=== PATIENT | male | born 1965 | race African-American/Black ===

== ENCOUNTER 2018-05-21 11:55 | Inpatient (IN) | payer OTHER ==
[2018-05-21 12:11] VITALS: BMI 28.5
--- NOTE | 2018-05-21 13:01 | HP ---
CIWA Score - CIWA Score Nausea/Vomitin-Mild Nausea/No Vomiting Muscle Tremors: 3 Anxiety: 4-Mod. Anxious/Guarded Agitation: 4-Moderately Restless Paroxysmal Sweats: 1-Minimal Palms Moist Orientation: 0-Oriented Tacttile Disturbances: 0-None Auditory Disturbances: 0-None Visual Disturbances: 0-None Headache: 1-Very Mild CIWA-Ar Total Score: 14 Admission ROS BHS - HPI Chief Complaint: alcohol withdrawal sx Allergies/Adverse Reactions: Allergies Allergy/AdvReac Type Severity Reaction Status Date / Time No Known Allergies Allergy Verified 05/21/18 12:52 History of Present Illness: 53 years old male with long history of alcohol nicotine dependence has hypertension and diabetes ii also anxiety and depression is admitted to detox Exam Limitations: No Limitations - Ebola screening Have you traveled outside of the country in the last 21 days: No Have you had contact with anyone from an Ebola affected area: No Have you been sick,other than usual withdrawal symptoms: No Do you have a fever: No - Review of Systems Constitutional: Changes in sleep, Weight Stable EENT: reports: No Symptoms Reported Respiratory: reports: No Symptoms reported Cardiac: reports: No Symptoms Reported GI: reports: Nausea, Poor Fluid Intake, Indigestion, Abdominal cramping : reports: No Symptoms Reported Musculoskeletal: reports: No Symptoms Reported Integumentary: reports: No Symptoms Reported Neuro: reports: Tremors Endocrine: reports: Increased Urine Hematology: reports: No Symptoms Reported Psychiatric: reports: Judgement Intact, Orientated x3, Anxious, Depressed Other Systems: Reviewed and Negative Patient History - Patient Medical History Hx Anemia: No Hx Asthma: No Hx Chronic Obstructive Pulmonary Disease (COPD): No Hx Cancer: No Hx Cardiac Disorders: No Hx Congestive Heart Failure: No Hx Hypertension: Yes Hx Hypercholesterolemia: No Hx Pacemaker: No HX Cerebrovascular Accident: No Hx Seizures: No Hx Dementia: No Hx Diabetes: Yes Hx Gastrointestinal Disorders: No Hx Liver Disease: No Hx Genitourinary Disorders: No Hx Sexually Transmitted Disorders: No Hx Renal Disease (ESRD): No Hx Thyroid Disease: No Hx Human Immunodeficiency Virus (HIV): No Hx Hepatitis C: No Hx Depression: Yes Hx Suicide Attempt: Yes (cut left wrist age 14) Hx Bipolar Disorder: No Hx Schizophrenia: No - Patient Surgical History Past Surgical History: Yes Hx Neurologic Surgery: No Hx Cataract Extraction: No Hx Cardiac Surgery: No Hx Lung Surgery: No Hx Breast Surgery: No Hx Breast Biopsy: No Hx Abdominal Surgery: Yes (Sx for peptic ulcer 17 yrs ago) Hx Appendectomy: No Hx Cholecystectomy: No Hx Genitourinary Surgery: No Hx Orthopedic Surgery: No Anesthesia Reaction: No - PPD History Previous Implant?: Yes Documented Results: Negative w/proof Implanted On Prior R Admission?: Yes Date: 04/12/14 PPD to be Administered?: Yes - Smoking Cessation Smoking history: Current every day smoker Have you smoked in the past 12 months: Yes Aproximately how many cigarettes per day: 10 Hx Chewing Tobacco Use: No Initiated information on smoking cessation: Yes 'Breaking Loose' booklet given: 05/21/18 - Substance & Tx. History Hx Alcohol Use: Yes Hx Substance Use: Yes Substance Use Type: Alcohol, Cocaine, Marijuana Hx Substance Use Treatment: Yes (2013 [facility]) Family Disease History - Family Disease History Family Disease History: Other: Father (ALCOHOL/), Brother (ALCOHOL), Sister (ALCOHOL) Admission Physical Exam BHS - Vital Signs Vital Signs: Vital Signs - 24 hr 05/21/18 12:09 Temperature 98.8 F Pulse Rate 91 H Respiratory 18 Rate Blood Pressure 152/97 - Physical General Appearance: Yes: Nourished, Appropriately Dressed, Mild Distress, Tremorous, Irritable, Sweating, Anxious HEENTM: Yes: Hearing grossly Normal, Normocephalic, Normal Voice Respiratory: Yes: Chest Non-Tender, Lungs Clear, Normal Breath Sounds, No Respiratory Distress, No Accessory Muscle Use Neck: Yes: Supple, Trachea in good position Breast: Yes: Breasts Symetrical, No Discharge Cardiology: Yes: Regular Rhythm, S1, S2, Tachycardia Abdominal: Yes: Non Tender, Flat, Increased Bowel Sounds Genitourinary: Yes: Within Normal Limits Back: Yes: Normal Inspection Musculoskeletal: Yes: full range of Motion, Gait Steady Extremities: Yes: Normal Inspection, Normal Range of Motion, Non-Tender, Tremors Neurological: Yes: Fully Oriented, Alert, Motor Strength 5/5, Normal Response, Depressed Affect Integumentary: Yes: Warm Lymphatic: Yes: Within Normal Limits - Diagnostic (1) Alcohol dependence with uncomplicated withdrawal Current Visit: Yes Status: Acute (2) Cannabis dependence, uncomplicated Current Visit: Yes Status: Chronic (3) Hypertension Current Visit: Yes Status: Chronic Qualifiers: Hypertension type: essential hypertension Qualified Code(s): I10 - Essential (primary) hypertension (4) Diabetes mellitus type II, non insulin dependent Current Visit: Yes Status: Chronic Comment: never received insulin (5) Nicotine dependence Current Visit: Yes Status: Acute Qualifiers: Nicotine product type: cigarettes Substance use status: in withdrawal Qualified Code(s): F17.213 - Nicotine dependence, cigarettes, with withdrawal Cleared for Admission S - Detox or Rehab [facility] Level of Care: Medically Managed Detox Regimen/Protocol: Librium S Breath Alcohol Content Breath Alcohol Content: 0 Urine Drug Screen - Control Is Test Valid: Yes - Results Drug Screen Negative: No Urine Drug Screen Results: THC-Marijuana, SUSHIL-Cocaine
[2018-05-21] MEDS ORDERED: NICOTINE POLACRILEX 2 MG GUM BUC PRN (13:11)
[2018-05-21] MEDS ORDERED: MENTHOL/PHENOL 1 EACH UD MM PRN (13:11)
[2018-05-21] MEDS ORDERED: MAG HYDROX/AL HYDROX/SIMETH 30 ML UNIT-DOSE CUP PO PRN (13:11)
[2018-05-21] MEDS ORDERED: chlordiazePOXIDE HCL 25 MG CAPSULE PO PRN (13:11)
[2018-05-21] MEDS ORDERED: ACETAMINOPHEN 325 MG TABLET (FP) PO PRN (13:11)
[2018-05-21] MEDS ORDERED: MAGNESIUM HYDROX 2400MG/30ML ORAL SUSPENSION 30 ML CUP PO PRN (13:11)
[2018-05-21] MEDS ORDERED: guaiFENesin/D-METHORPHAN HB 10 ML UNIT-DOSE CUPS PO PRN (13:11)
[2018-05-21] MEDS ORDERED: IBUPROFEN 400 MG TABLET (FP) PO PRN (13:11)
[2018-05-21] MEDS ORDERED: MAGNESIUM CITRATE 300 ML BOTTLE PO PRN (13:11)
[2018-05-21] MEDS ORDERED: P-EPHED 60MG/TRIPROLIDI 2.5MG TABLET PO PRN (13:11)
[2018-05-21] MEDS ORDERED: LOPERAMIDE HCL 2 MG CAPSULE PO PRN (13:11)
[2018-05-21] MEDS: NICOTINE 14 MG/24 HOURS TOPICAL PATCH TD SCH (15:41)
[2018-05-21] MEDS: metFORMIN HCL 500 MG TABLET (FP) PO SCH ×2 (15:44→17:25)
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
[2018-05-21] MEDS: cloNIDine HCL 0.1 MG TABLET PO PRN (17:25)
[2018-05-21] MEDS: chlordiazePOXIDE HCL 25 MG CAPSULE PO SCH ×2 (17:25→22:30)
[2018-05-21] MEDS ORDERED: QUEtiapine FUMARATE 100 MG TABLET (FP) PO SCH (22:00)
[2018-05-21] MEDS: THIAMINE HCL 100 MG TABLET (FP) PO SCH (22:30)
[2018-05-21] MEDS: QUEtiapine FUMARATE 100 MG TABLET (FP) PO SCH (22:30)
[2018-05-21 23:28] LABS: URINE APPEARANCE TURBID; URINE BILIRUBIN NEGATIVE (<2.0 mg/dL); URINE COLOR YELLOW; URINE GLUCOSE (UA) NEGATIVE (NEGATIVE); URINE KETONE NEGATIVE (NEGATIVE); URINE LEUK ESTERASE NEGATIVE (NEGATIVE); URINE NITRITE NEGATIVE (NEGATIVE)
[2018-05-21 23:39] LABS: URINE PROTEIN 1+ (NEGATIVE)
[2018-05-21 23:54] LABS: URINE BACTERIA RARE /hpf (NONE SEEN); URINE MUCUS MANY
[2018-05-22] MEDS: chlordiazePOXIDE HCL 25 MG CAPSULE PO SCH ×4 (06:07→22:27)
[2018-05-22] MEDS: metFORMIN HCL 500 MG TABLET (FP) PO SCH ×2 (07:55→17:34)
[2018-05-22 10:12] LABS: HEMOGLOBIN 14.2 GM/dL (11.7-16.9); MCHC 33.8 g/dl (32.0-35.9); MEAN CELL VOLUME 100.5 fl (80-96); MEAN PLT VOLUME 11.4 fl (7.5-11.1); PLATELET COUNT 182 K/MM3 (134-434); RBC 4.18 M/mm3 (4.00-5.60); RDW 13.9 % (11.9-15.9); WHITE BLOOD COUNT 5.8 K/mm3 (4.0-10.0)
[2018-05-22 10:27] LABS: CHLORIDE 107 mmol/L (98-107); POTASSIUM 3.9 mmol/L (3.5-5.1); SODIUM 140 mmol/L (136-145)
[2018-05-22] MEDS: PRENATAL VITAMINS W/ FOLIC ACID TABLET (FP) PO SCH (10:39)
[2018-05-22] MEDS: cloNIDine HCL 0.1 MG TABLET PO PRN (10:39)
[2018-05-22] MEDS: SERTRALINE HCL 50 MG TABLET (FP) PO SCH (10:39)
[2018-05-22] MEDS: NICOTINE 14 MG/24 HOURS TOPICAL PATCH TD SCH (10:41)
[2018-05-22 10:43] LABS: ALBUMIN 3.9 g/dl (3.4-5.0); ALK PHOS 93 U/L (45-117); ANION GAP 8 (8-16); BILIRUBIN,TOTAL 0.4 mg/dL (0.2-1.0); BLOOD UREA NITROGEN 11 mg/dL (7-18); CALCIUM 8.7 mg/dL (8.5-10.1); CO2 25 mmol/L (21-32); CREATININE 1.2 mg/dL (0.7-1.3); GLUCOSE,RANDOM 123 mg/dL (74-106); SGOT/AST 19 U/L (15-37); SGPT/ALT 25 U/L (12-78); TOT PROT 7.2 g/dl (6.4-8.2)
[2018-05-22] MEDS ORDERED: COLLOIDAL OATMEAL 1 BAR EACH TP PRN (10:57)
--- NOTE | 2018-05-22 12:01 | EKG ---
Test Reason : Blood Pressure : / mmHG Vent. Rate : 081 BPM Atrial Rate : 081 BPM P-R Int : 174 ms QRS Dur : 088 ms QT Int : 390 ms P-R-T Axes : 081 061 040 degrees QTc Int : 453 ms NORMAL SINUS RHYTHM POSSIBLE LEFT ATRIAL ENLARGEMENT LEFT VENTRICULAR HYPERTROPHY ABNORMAL ECG NO PREVIOUS ECGS AVAILABLE Confirmed by KAYLA CARPENTER MD ([id number]) on 05/22/2018 12:00:51 PM Referred By: Confirmed By:KAYLA CARPENTER MD
--- NOTE | 2018-05-22 12:14 | PN ---
S CIWA - CIWA Score Nausea/Vomitin-No Nausea/No Vomiting Muscle Tremors: 4-Moderate,w/Arms Extend Anxiety: 4-Mod. Anxious/Guarded Agitation: 4-Moderately Restless Paroxysmal Sweats: 1-Minimal Palms Moist Orientation: 0-Oriented Tacttile Disturbances: 0-None Auditory Disturbances: 0-None Visual Disturbances: 0-None Headache: 0-None Present CIWA-Ar Total Score: 13 BHS Progress Note (SOAP) Subjective: ANXIETY,SWEATS, HEADACHE ON/OFF,FATIGUE. Objective: 05/22/18 12:13 Vital Signs 05/22/18 05/22/18 05/22/18 06:26 06:30 07:32 Temperature 97.6 F 97.1 F L Pulse Rate 87 88 Respiratory 18 18 18 Rate Blood Pressure 159/94 155/92 05/22/18 09:17 Temperature 98.6 F Pulse Rate 68 Respiratory 18 Rate Blood Pressure 154/84 Laboratory Tests 05/21/18 05/21/18 05/21/18 13:22 13:25 16:25 WBC RBC Hgb Hct MCV MCH MCHC RDW Plt Count MPV Sodium Potassium Chloride Carbon Dioxide Anion Gap BUN Creatinine Creat Clearance w eGFR POC Glucometer 136 97 Random Glucose Calcium Total Bilirubin AST ALT Alkaline Phosphatase Total Protein Albumin Urine Color Urine Appearance Urine pH Ur Specific [place] Urine Protein Urine Glucose (UA) Urine Ketones Urine Blood Urine Nitrite Urine Bilirubin Urine Urobilinogen Ur Leukocyte Esterase Urine WBC (Auto) Urine RBC (Auto) Urine Bacteria Urine Mucus HIV 1&2 Antibody Screen Negative HIV P24 Antigen Negative 05/21/18 05/22/18 05/22/18 23:15 06:00 06:00 WBC 5.8 D RBC 4.18 Hgb 14.2 Hct 42.0 MCV 100.5 H MCH 34.0 H MCHC 33.8 RDW 13.9 Plt Count 182 D MPV 11.4 H D Sodium 140 Potassium 3.9 Chloride 107 Carbon Dioxide 25 Anion Gap 8 BUN 11 D Creatinine 1.2 D Creat Clearance w eGFR > 60 POC Glucometer Random Glucose 123 H Calcium 8.7 Total Bilirubin 0.4 D AST 19 ALT 25 D Alkaline Phosphatase 93 D Total Protein 7.2 D Albumin 3.9 D Urine Color Yellow Urine Appearance Turbid Urine pH 6.0 Ur Specific [place] 1.027 Urine Protein 1+ H Urine Glucose (UA) Negative Urine Ketones Negative Urine Blood Negative Urine Nitrite Negative Urine Bilirubin Negative Urine Urobilinogen 2.0 Ur Leukocyte Esterase Negative Urine WBC (Auto) 62 Urine RBC (Auto) 2 Urine Bacteria Rare Urine Mucus Many HIV 1&2 Antibody Screen HIV P24 Antigen 05/22/18 06:06 WBC RBC Hgb Hct MCV MCH MCHC RDW Plt Count MPV Sodium Potassium Chloride Carbon Dioxide Anion Gap BUN Creatinine Creat Clearance w eGFR POC Glucometer 78 Random Glucose Calcium Total Bilirubin AST ALT Alkaline Phosphatase Total Protein Albumin Urine Color Urine Appearance Urine pH Ur Specific [place] Urine Protein Urine Glucose (UA) Urine Ketones Urine Blood Urine Nitrite Urine Bilirubin Urine Urobilinogen Ur Leukocyte Esterase Urine WBC (Auto) Urine RBC (Auto) Urine Bacteria Urine Mucus HIV 1&2 Antibody Screen HIV P24 Antigen Assessment: 05/22/18 12:13 WITHDRAWAL SX Plan: CONTINUE DETOX CLONIDINE 0.1 MG PO GIVEN
[2018-05-22] MEDS: cloNIDine HCL 0.1 MG TABLET PO SCH ×2 (12:40→23:30)
[2018-05-22] MEDS: QUEtiapine FUMARATE 100 MG TABLET (FP) PO SCH (22:27)
[2018-05-22] MEDS: THIAMINE HCL 100 MG TABLET (FP) PO SCH (22:27)
[2018-05-23] MEDS: chlordiazePOXIDE HCL 25 MG CAPSULE PO SCH ×2 (05:56→10:48)
[2018-05-23] MEDS: metFORMIN HCL 500 MG TABLET (FP) PO SCH ×2 (08:24→17:45)
[2018-05-23] MEDS: PRENATAL VITAMINS W/ FOLIC ACID TABLET (FP) PO SCH (10:47)
[2018-05-23] MEDS: SERTRALINE HCL 50 MG TABLET (FP) PO SCH (10:48)
[2018-05-23] MEDS: NICOTINE 14 MG/24 HOURS TOPICAL PATCH TD SCH (10:49)
[2018-05-23] MEDS ORDERED: cloNIDine HCL 0.1 MG TABLET PO ONE (12:00)
[2018-05-23] MEDS: VITAMINS A AND D TOPICAL OINTMENT 60 GM TUBE TP SCH ×2 (14:00→22:30)
--- NOTE | 2018-05-23 14:59 | PN ---
[facility] CIWA - CIWA Score Nausea/Vomitin-No Nausea/No Vomiting Muscle Tremors: None Anxiety: 5 Agitation: 4-Moderately Restless Paroxysmal Sweats: 3 Orientation: 0-Oriented Tacttile Disturbances: 2-Mild Itch/Numbness/Burn Auditory Disturbances: 0-None Visual Disturbances: 2-Mild Sensitivity Headache: 0-None Present CIWA-Ar Total Score: 16 BHS Progress Note (SOAP) Subjective: Sweating, Diarrhea, Body Aches, Anxious. Objective: PATIENT A & O X 3, OBSERVED AMBULATING ON UNIT. NO ACUTE DISTRESS. 05/23/18 14:57 Vital Signs Temperature 98.2 F 05/23/18 13:26 Pulse Rate 68 05/23/18 13:26 Respiratory Rate 18 05/23/18 13:26 Blood Pressure 132/83 05/23/18 13:26 O2 Sat by Pulse Oximetry (%) Laboratory Tests 05/21/18 05/21/18 05/21/18 13:22 13:25 16:25 WBC RBC Hgb Hct MCV MCH MCHC RDW Plt Count MPV Sodium Potassium Chloride Carbon Dioxide Anion Gap BUN Creatinine Creat Clearance w eGFR POC Glucometer 136 97 Random Glucose Calcium Total Bilirubin AST ALT Alkaline Phosphatase Total Protein Albumin Urine Color Urine Appearance Urine pH Ur Specific [place] Urine Protein Urine Glucose (UA) Urine Ketones Urine Blood Urine Nitrite Urine Bilirubin Urine Urobilinogen Ur Leukocyte Esterase Urine WBC (Auto) Urine RBC (Auto) Urine Bacteria Urine Mucus RPR Titer HIV 1&2 Antibody Screen Negative HIV P24 Antigen Negative 05/21/18 05/22/18 05/22/18 23:15 06:00 06:00 WBC 5.8 D RBC 4.18 Hgb 14.2 Hct 42.0 MCV 100.5 H MCH 34.0 H MCHC 33.8 RDW 13.9 Plt Count 182 D MPV 11.4 H D Sodium 140 Potassium 3.9 Chloride 107 Carbon Dioxide 25 Anion Gap 8 BUN 11 D Creatinine 1.2 D Creat Clearance w eGFR > 60 POC Glucometer Random Glucose 123 H Calcium 8.7 Total Bilirubin 0.4 D AST 19 ALT 25 D Alkaline Phosphatase 93 D Total Protein 7.2 D Albumin 3.9 D Urine Color Yellow Urine Appearance Turbid Urine pH 6.0 Ur Specific [place] 1.027 Urine Protein 1+ H Urine Glucose (UA) Negative Urine Ketones Negative Urine Blood Negative Urine Nitrite Negative Urine Bilirubin Negative Urine Urobilinogen 2.0 Ur Leukocyte Esterase Negative Urine WBC (Auto) 62 Urine RBC (Auto) 2 Urine Bacteria Rare Urine Mucus Many RPR Titer HIV 1&2 Antibody Screen HIV P24 Antigen 05/22/18 05/22/18 05/22/18 06:00 06:06 17:03 WBC RBC Hgb Hct MCV MCH MCHC RDW Plt Count MPV Sodium Potassium Chloride Carbon Dioxide Anion Gap BUN Creatinine Creat Clearance w eGFR POC Glucometer 78 130 Random Glucose Calcium Total Bilirubin AST ALT Alkaline Phosphatase Total Protein Albumin Urine Color Urine Appearance Urine pH Ur Specific [place] Urine Protein Urine Glucose (UA) Urine Ketones Urine Blood Urine Nitrite Urine Bilirubin Urine Urobilinogen Ur Leukocyte Esterase Urine WBC (Auto) Urine RBC (Auto) Urine Bacteria Urine Mucus RPR Titer Nonreactive HIV 1&2 Antibody Screen HIV P24 Antigen 05/23/18 05:58 WBC RBC Hgb Hct MCV MCH MCHC RDW Plt Count MPV Sodium Potassium Chloride Carbon Dioxide Anion Gap BUN Creatinine Creat Clearance w eGFR POC Glucometer 110 Random Glucose Calcium Total Bilirubin AST ALT Alkaline Phosphatase Total Protein Albumin Urine Color Urine Appearance Urine pH Ur Specific [place] Urine Protein Urine Glucose (UA) Urine Ketones Urine Blood Urine Nitrite Urine Bilirubin Urine Urobilinogen Ur Leukocyte Esterase Urine WBC (Auto) Urine RBC (Auto) Urine Bacteria Urine Mucus RPR Titer HIV 1&2 Antibody Screen HIV P24 Antigen LABS NOTED. Assessment: 05/23/18 14:57 WITHDRAWAL SYMPTOMS. Plan: CONTINUE DETOX. INCREASE DAILY PO FLUID INTAKE. PRN IMMODIUM FOR DIARRHEA.
[2018-05-23] MEDS: chlordiazePOXIDE 5 MG CAPSULE PO SCH ×2 (17:44→22:31)
[2018-05-23] MEDS: THIAMINE HCL 100 MG TABLET (FP) PO SCH (22:30)
[2018-05-23] MEDS: cloNIDine HCL 0.1 MG TABLET PO SCH (22:31)
[2018-05-23] MEDS: QUEtiapine FUMARATE 100 MG TABLET (FP) PO SCH (22:31)
[2018-05-24] MEDS: chlordiazePOXIDE 5 MG CAPSULE PO SCH ×2 (06:21→10:38)
[2018-05-24] MEDS: metFORMIN HCL 500 MG TABLET (FP) PO SCH ×2 (07:58→18:18)
[2018-05-24] MEDS: VITAMINS A AND D TOPICAL OINTMENT 60 GM TUBE TP SCH ×2 (10:38→22:16)
[2018-05-24] MEDS: PRENATAL VITAMINS W/ FOLIC ACID TABLET (FP) PO SCH (10:38)
[2018-05-24] MEDS: cloNIDine HCL 0.1 MG TABLET PO SCH ×2 (10:38→22:14)
[2018-05-24] MEDS: NICOTINE 14 MG/24 HOURS TOPICAL PATCH TD SCH (10:38)
[2018-05-24] MEDS: SERTRALINE HCL 50 MG TABLET (FP) PO SCH (10:38)
--- NOTE | 2018-05-24 17:43 | PN ---
BHS Progress Note (SOAP) Subjective: Sweating, Diarrhea, Body Aches, Anxious. Objective: PATIENT A & O X 3, OBSERVED AMBULATING ON UNIT. NO ACUTE DISTRESS. 05/24/18 17:40 Vital Signs Temperature 98.1 F 05/24/18 14:37 Pulse Rate 92 H 05/24/18 14:37 Respiratory Rate 20 05/24/18 14:37 Blood Pressure 133/85 05/24/18 14:37 O2 Sat by Pulse Oximetry (%) Laboratory Tests 05/21/18 05/21/18 05/21/18 13:22 13:25 16:25 WBC RBC Hgb Hct MCV MCH MCHC RDW Plt Count MPV Sodium Potassium Chloride Carbon Dioxide Anion Gap BUN Creatinine Creat Clearance w eGFR POC Glucometer 136 97 Random Glucose Calcium Total Bilirubin AST ALT Alkaline Phosphatase Total Protein Albumin Urine Color Urine Appearance Urine pH Ur Specific [place] Urine Protein Urine Glucose (UA) Urine Ketones Urine Blood Urine Nitrite Urine Bilirubin Urine Urobilinogen Ur Leukocyte Esterase Urine WBC (Auto) Urine RBC (Auto) Urine Bacteria Urine Mucus RPR Titer HIV 1&2 Antibody Screen Negative HIV P24 Antigen Negative 05/21/18 05/22/18 05/22/18 23:15 06:00 06:00 WBC 5.8 D RBC 4.18 Hgb 14.2 Hct 42.0 MCV 100.5 H MCH 34.0 H MCHC 33.8 RDW 13.9 Plt Count 182 D MPV 11.4 H D Sodium 140 Potassium 3.9 Chloride 107 Carbon Dioxide 25 Anion Gap 8 BUN 11 D Creatinine 1.2 D Creat Clearance w eGFR > 60 POC Glucometer Random Glucose 123 H Calcium 8.7 Total Bilirubin 0.4 D AST 19 ALT 25 D Alkaline Phosphatase 93 D Total Protein 7.2 D Albumin 3.9 D Urine Color Yellow Urine Appearance Turbid Urine pH 6.0 Ur Specific [place] 1.027 Urine Protein 1+ H Urine Glucose (UA) Negative Urine Ketones Negative Urine Blood Negative Urine Nitrite Negative Urine Bilirubin Negative Urine Urobilinogen 2.0 Ur Leukocyte Esterase Negative Urine WBC (Auto) 62 Urine RBC (Auto) 2 Urine Bacteria Rare Urine Mucus Many RPR Titer HIV 1&2 Antibody Screen HIV P24 Antigen 05/22/18 05/22/18 05/22/18 06:00 06:06 17:03 WBC RBC Hgb Hct MCV MCH MCHC RDW Plt Count MPV Sodium Potassium Chloride Carbon Dioxide Anion Gap BUN Creatinine Creat Clearance w eGFR POC Glucometer 78 130 Random Glucose Calcium Total Bilirubin AST ALT Alkaline Phosphatase Total Protein Albumin Urine Color Urine Appearance Urine pH Ur Specific [place] Urine Protein Urine Glucose (UA) Urine Ketones Urine Blood Urine Nitrite Urine Bilirubin Urine Urobilinogen Ur Leukocyte Esterase Urine WBC (Auto) Urine RBC (Auto) Urine Bacteria Urine Mucus RPR Titer Nonreactive HIV 1&2 Antibody Screen HIV P24 Antigen 05/23/18 05/23/18 05/24/18 05:58 16:22 06:22 WBC RBC Hgb Hct MCV MCH MCHC RDW Plt Count MPV Sodium Potassium Chloride Carbon Dioxide Anion Gap BUN Creatinine Creat Clearance w eGFR POC Glucometer 110 98 104 Random Glucose Calcium Total Bilirubin AST ALT Alkaline Phosphatase Total Protein Albumin Urine Color Urine Appearance Urine pH Ur Specific [place] Urine Protein Urine Glucose (UA) Urine Ketones Urine Blood Urine Nitrite Urine Bilirubin Urine Urobilinogen Ur Leukocyte Esterase Urine WBC (Auto) Urine RBC (Auto) Urine Bacteria Urine Mucus RPR Titer HIV 1&2 Antibody Screen HIV P24 Antigen 05/24/18 16:20 WBC RBC Hgb Hct MCV MCH MCHC RDW Plt Count MPV Sodium Potassium Chloride Carbon Dioxide Anion Gap BUN Creatinine Creat Clearance w eGFR POC Glucometer 100 Random Glucose Calcium Total Bilirubin AST ALT Alkaline Phosphatase Total Protein Albumin Urine Color Urine Appearance Urine pH Ur Specific [place] Urine Protein Urine Glucose (UA) Urine Ketones Urine Blood Urine Nitrite Urine Bilirubin Urine Urobilinogen Ur Leukocyte Esterase Urine WBC (Auto) Urine RBC (Auto) Urine Bacteria Urine Mucus RPR Titer HIV 1&2 Antibody Screen HIV P24 Antigen LABS NOTED. Assessment: 05/24/18 17:40 WITHDRAWAL SYMPTOMS. Plan: CONTINUE DETOX. PRN IMMODIUM FOR DIARRHEA. INCREASE DAILY PO FLUID INTAKE. DUE TO DEGREE OF LINGERING WITHDRAWAL SYMPTOMS, PATIENT PERMITTED TO REMAIN ON DETOX UNIT UNTIL 05/26/2018, AT WHICH TIME HE WILL BE DISCHARGED TO GO ON [facility] ([place], [place] FOR AFTERCARE.
[2018-05-24] MEDS: chlordiazePOXIDE HCL 10 MG CAPSULE PO SCH ×2 (18:19→22:15)
[2018-05-24] MEDS: QUEtiapine FUMARATE 100 MG TABLET (FP) PO SCH (22:15)
[2018-05-24] MEDS: THIAMINE HCL 100 MG TABLET (FP) PO SCH (22:16)
[2018-05-24] MEDS: MELATONIN 5 MG TABLETS PO PRN (22:17)
[2018-05-25] MEDS: chlordiazePOXIDE HCL 10 MG CAPSULE PO SCH ×2 (05:35→10:33)
[2018-05-25] MEDS: metFORMIN HCL 500 MG TABLET (FP) PO SCH ×2 (07:33→16:53)
[2018-05-25] MEDS: SERTRALINE HCL 50 MG TABLET (FP) PO SCH (10:32)
[2018-05-25] MEDS: VITAMINS A AND D TOPICAL OINTMENT 60 GM TUBE TP SCH ×2 (10:32→22:35)
[2018-05-25] MEDS: cloNIDine HCL 0.1 MG TABLET PO SCH ×2 (10:32→22:35)
[2018-05-25] MEDS: PRENATAL VITAMINS W/ FOLIC ACID TABLET (FP) PO SCH (10:32)
[2018-05-25] MEDS: NICOTINE 14 MG/24 HOURS TOPICAL PATCH TD SCH (10:33)
--- NOTE | 2018-05-25 15:05 | PN ---
BHS Progress Note (SOAP) Subjective: PT REPORTS DETOX PROTOCOL PROCEEDING WELL. ALERT O X 3. Objective: 05/25/18 15:04 Vital Signs 05/25/18 05/25/18 09:47 14:28 Temperature 97.0 F L 97.7 F Pulse Rate 71 68 Respiratory 18 18 Rate Blood Pressure 124/74 118/71 Laboratory Tests 05/21/18 05/21/18 05/21/18 13:22 13:25 16:25 WBC RBC Hgb Hct MCV MCH MCHC RDW Plt Count MPV Sodium Potassium Chloride Carbon Dioxide Anion Gap BUN Creatinine Creat Clearance w eGFR POC Glucometer 136 97 Random Glucose Calcium Total Bilirubin AST ALT Alkaline Phosphatase Total Protein Albumin Urine Color Urine Appearance Urine pH Ur Specific [place] Urine Protein Urine Glucose (UA) Urine Ketones Urine Blood Urine Nitrite Urine Bilirubin Urine Urobilinogen Ur Leukocyte Esterase Urine WBC (Auto) Urine RBC (Auto) Urine Bacteria Urine Mucus RPR Titer HIV 1&2 Antibody Screen Negative HIV P24 Antigen Negative 05/21/18 05/22/18 05/22/18 23:15 06:00 06:00 WBC 5.8 D RBC 4.18 Hgb 14.2 Hct 42.0 MCV 100.5 H MCH 34.0 H MCHC 33.8 RDW 13.9 Plt Count 182 D MPV 11.4 H D Sodium 140 Potassium 3.9 Chloride 107 Carbon Dioxide 25 Anion Gap 8 BUN 11 D Creatinine 1.2 D Creat Clearance w eGFR > 60 POC Glucometer Random Glucose 123 H Calcium 8.7 Total Bilirubin 0.4 D AST 19 ALT 25 D Alkaline Phosphatase 93 D Total Protein 7.2 D Albumin 3.9 D Urine Color Yellow Urine Appearance Turbid Urine pH 6.0 Ur Specific [place] 1.027 Urine Protein 1+ H Urine Glucose (UA) Negative Urine Ketones Negative Urine Blood Negative Urine Nitrite Negative Urine Bilirubin Negative Urine Urobilinogen 2.0 Ur Leukocyte Esterase Negative Urine WBC (Auto) 62 Urine RBC (Auto) 2 Urine Bacteria Rare Urine Mucus Many RPR Titer HIV 1&2 Antibody Screen HIV P24 Antigen 05/22/18 05/22/18 05/22/18 06:00 06:06 17:03 WBC RBC Hgb Hct MCV MCH MCHC RDW Plt Count MPV Sodium Potassium Chloride Carbon Dioxide Anion Gap BUN Creatinine Creat Clearance w eGFR POC Glucometer 78 130 Random Glucose Calcium Total Bilirubin AST ALT Alkaline Phosphatase Total Protein Albumin Urine Color Urine Appearance Urine pH Ur Specific [place] Urine Protein Urine Glucose (UA) Urine Ketones Urine Blood Urine Nitrite Urine Bilirubin Urine Urobilinogen Ur Leukocyte Esterase Urine WBC (Auto) Urine RBC (Auto) Urine Bacteria Urine Mucus RPR Titer Nonreactive HIV 1&2 Antibody Screen HIV P24 Antigen 05/23/18 05/23/18 05/24/18 05:58 16:22 06:22 WBC RBC Hgb Hct MCV MCH MCHC RDW Plt Count MPV Sodium Potassium Chloride Carbon Dioxide Anion Gap BUN Creatinine Creat Clearance w eGFR POC Glucometer 110 98 104 Random Glucose Calcium Total Bilirubin AST ALT Alkaline Phosphatase Total Protein Albumin Urine Color Urine Appearance Urine pH Ur Specific [place] Urine Protein Urine Glucose (UA) Urine Ketones Urine Blood Urine Nitrite Urine Bilirubin Urine Urobilinogen Ur Leukocyte Esterase Urine WBC (Auto) Urine RBC (Auto) Urine Bacteria Urine Mucus RPR Titer HIV 1&2 Antibody Screen HIV P24 Antigen 05/24/18 05/25/18 16:20 05:37 WBC RBC Hgb Hct MCV MCH MCHC RDW Plt Count MPV Sodium Potassium Chloride Carbon Dioxide Anion Gap BUN Creatinine Creat Clearance w eGFR POC Glucometer 100 132 Random Glucose Calcium Total Bilirubin AST ALT Alkaline Phosphatase Total Protein Albumin Urine Color Urine Appearance Urine pH Ur Specific [place] Urine Protein Urine Glucose (UA) Urine Ketones Urine Blood Urine Nitrite Urine Bilirubin Urine Urobilinogen Ur Leukocyte Esterase Urine WBC (Auto) Urine RBC (Auto) Urine Bacteria Urine Mucus RPR Titer HIV 1&2 Antibody Screen HIV P24 Antigen Assessment: 05/25/18 15:04 WITHDRAWAL SX Plan: CONTINUE DETOX
[2018-05-25] MEDS: THIAMINE HCL 100 MG TABLET (FP) PO SCH (22:35)
[2018-05-25] MEDS: QUEtiapine FUMARATE 100 MG TABLET (FP) PO SCH (22:35)
[2018-05-25] MEDS: MELATONIN 5 MG TABLETS PO PRN (22:36)
[2018-05-26] MEDS: metFORMIN HCL 500 MG TABLET (FP) PO SCH (06:49)
--- NOTE | 2018-05-26 08:50 | PN ---
S Progress Note (SOAP) Subjective: No complaints offered Requesting prescription for his home meds Objective: 05/26/18 08:47 A & O x 3 Gait steady Vital Signs Temperature 96.8 F L 05/26/18 06:32 Pulse Rate 73 05/26/18 06:32 Respiratory Rate 18 05/26/18 06:32 Blood Pressure 118/79 05/26/18 06:32 O2 Sat by Pulse Oximetry (%) Assessment: 05/26/18 08:49 Detox completely completed Plan: For d/c
--- NOTE | 2018-05-26 08:53 | DS ---
[facility] Detox Discharge Summary Admission Date: 05/21/18 Discharge Date: 05/26/18 - History Additional Comments: pt being d/c. Prescription Metformin sent to [place] [facility] Pt to do aftercare rehab at [address] - Physical Exam Results Vital Signs: Vital Signs Temperature 96.8 F L 05/26/18 06:32 Pulse Rate 73 05/26/18 06:32 Respiratory Rate 18 05/26/18 06:32 Blood Pressure 118/79 05/26/18 06:32 O2 Sat by Pulse Oximetry (%) Pertinent Admission Physical Exam Findings: withdrawal sx - Treatment Hospital Course: Detox Protocol Followed, Detoxed Safely, Responded well, Discharged Condition Good, Rehab Referral Accepted Patient has Accepted a Rehab Referral to: [facility] - Medication Discharge Medications: Ambulatory Orders Quetiapine Fumarate [Seroquel] 100 tab PO HS 05/21/18 Sertraline HCl [Zoloft -] 50 mg PO DAILY 05/21/18 Metformin HCl [Glucophage] 500 mg PO BID #60 tablet 05/26/18 - Diagnosis (1) Alcohol dependence with uncomplicated withdrawal Current Visit: Yes Status: Acute (2) Cocaine dependence Current Visit: Yes Status: Acute (3) Nicotine dependence Current Visit: Yes Status: Acute Qualifiers: Nicotine product type: cigarettes Substance use status: in withdrawal Qualified Code(s): F17.213 - Nicotine dependence, cigarettes, with withdrawal (4) Substance induced mood disorder Current Visit: Yes Status: Acute (5) Bipolar disorder Current Visit: Yes Status: Chronic (6) Cannabis dependence, uncomplicated Current Visit: Yes Status: Chronic (7) Diabetes mellitus type II, non insulin dependent Current Visit: Yes Status: Chronic - AMA Did Patient Leave Against Medical Advice: No
[2018-05-26] MEDS: PRENATAL VITAMINS W/ FOLIC ACID TABLET (FP) PO SCH (09:21)
[2018-05-26] MEDS: cloNIDine HCL 0.1 MG TABLET PO SCH (09:21)
[2018-05-26] MEDS: SERTRALINE HCL 50 MG TABLET (FP) PO SCH (09:21)
[2018-05-26] MEDS: NICOTINE 14 MG/24 HOURS TOPICAL PATCH TD SCH (09:22)
[2018-05-26] MEDS: VITAMINS A AND D TOPICAL OINTMENT 60 GM TUBE TP SCH (09:22)
[2018-05-26 09:45] VITALS: BP 145/94; PULSE 83; TEMP 97.3
== END 2018-05-26 10:20 | disposition home or self-care (01) | DRG 774 ==
LOC: YASAS 11:55 → Y3N 13:58
PROVIDERS: ADMIT Family Medicine Addiction Medicine; ATTEND Family Medicine Addiction Medicine
PROC: HZ2ZZZZ Detoxification Services for Substance Abuse Treatment (ICD-10-PCS; principal; 2018-05-21)
DX: F10.230 Alcohol dependence with withdrawal, uncomplicated (principal); F14.20 Cocaine dependence, uncomplicated; F12.20 Cannabis dependence, uncomplicated; F17.213 Nicotine dependence, cigarettes, with withdrawal; F33.9 Major depressive disorder, recurrent, unspecified; F19.24 Other psychoactive substance dependence with psychoactive substance-induced mood disorder; F31.9 Bipolar disorder, unspecified; F43.10 Post-traumatic stress disorder, unspecified; E11.9 Type 2 diabetes mellitus without complications; Z79.84 Long term (current) use of oral hypoglycemic drugs; Z91.5 Personal history of self-harm
CPT/HCPCS: 36415; 80053; 81003; 81015; 82962; 85027; 86593; 87389; 93005; 93010; J0735

== ENCOUNTER 2019-01-28 15:55 | Inpatient (IN) | payer OTHER ==
[2019-01-28 17:39] VITALS: BMI 28.3
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
[2019-01-28] MEDS ORDERED: LOPERAMIDE HCL 2 MG CAPSULE PO PRN (20:38)
[2019-01-28] MEDS ORDERED: MAG HYDROX/AL HYDROX/SIMETH 30 ML UNIT-DOSE CUP PO PRN (20:38)
[2019-01-28] MEDS ORDERED: P-EPHED 60MG/TRIPROLIDI 2.5MG TABLET PO PRN (20:38)
[2019-01-28] MEDS ORDERED: MAGNESIUM HYDROX 2400MG/30ML ORAL SUSPENSION 30 ML CUP PO PRN (20:38)
[2019-01-28] MEDS ORDERED: IBUPROFEN 400 MG TABLET (FP) PO PRN (20:38)
[2019-01-28] MEDS ORDERED: chlordiazePOXIDE HCL 25 MG CAPSULE PO PRN (20:38)
[2019-01-28] MEDS ORDERED: MAGNESIUM CITRATE 300 ML BOTTLE PO PRN (20:38)
[2019-01-28] MEDS ORDERED: hydrOXYzine PAMOATE 50 MG CAPSULE (FP) PO PRN (20:38)
[2019-01-28] MEDS ORDERED: NICOTINE POLACRILEX 2 MG GUM BC PRN (20:38)
[2019-01-28] MEDS ORDERED: MENTHOL/PHENOL 1 EACH UD MM PRN (20:38)
[2019-01-28] MEDS: chlordiazePOXIDE HCL 25 MG CAPSULE PO SCH (22:34)
[2019-01-28] MEDS: MELATONIN 5 MG TABLETS PO PRN (22:34)
[2019-01-28] MEDS: THIAMINE HCL 100 MG TABLET (FP) PO SCH (22:34)
[2019-01-28 23:18] LABS: URINE APPEARANCE CLEAR; URINE BILIRUBIN NEGATIVE (<2.0 mg/dL); URINE COLOR STRAW; URINE GLUCOSE (UA) NEGATIVE (NEGATIVE); URINE KETONE NEGATIVE (NEGATIVE); URINE LEUK ESTERASE NEGATIVE (NEGATIVE); URINE NITRITE NEGATIVE (NEGATIVE); URINE PROTEIN NEGATIVE (NEGATIVE); URINE UROBILINOGEN NEGATIVE mg/dL (0.2-1.0)
[2019-01-29] MEDS: chlordiazePOXIDE HCL 25 MG CAPSULE PO SCH ×4 (05:16→22:10)
[2019-01-29] MEDS ORDERED: cloNIDine HCL 0.1 MG TABLET PO PRN (08:49)
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
--- NOTE | 2019-01-29 09:19 | PN ---
S CIWA - CIWA Score Nausea/Vomitin-Mild Nausea/No Vomiting Muscle Tremors: 4-Moderate,w/Arms Extend Anxiety: 2 Agitation: 2 Paroxysmal Sweats: 1-Minimal Palms Moist Orientation: 1-Uncertain about Date Tacttile Disturbances: 0-None Auditory Disturbances: 0-None Visual Disturbances: 0-None Headache: 1-Very Mild CIWA-Ar Total Score: 12 B[facility] Progress Note (SOAP) Subjective: sweating tremor restlessness Objective: 01/29/19 09:18 Vital Signs Temperature 98.7 F 01/29/19 09:09 Pulse Rate 72 01/29/19 09:09 Respiratory Rate 16 01/29/19 09:09 Blood Pressure 130/80 01/29/19 09:09 O2 Sat by Pulse Oximetry (%) Laboratory Last Values POC Glucometer 110 UNITS (80-120) 01/29/19 05:16 Urine Color Straw 01/28/19 21:00 Urine Appearance Clear 01/28/19 21:00 Urine pH 5.0 (5.0-8.0) 01/28/19 21:00 Ur Specific [place] 1.009 (1.010-1.035) L 01/28/19 21:00 Urine Protein Negative (NEGATIVE) 01/28/19 21:00 Urine Glucose (UA) Negative (NEGATIVE) 01/28/19 21:00 Urine Ketones Negative (NEGATIVE) 01/28/19 21:00 Urine Blood Negative (NEGATIVE) 01/28/19 21:00 Urine Nitrite Negative (NEGATIVE) 01/28/19 21:00 Urine Bilirubin Negative (<2.0 mg/dL) 01/28/19 21:00 Urine Urobilinogen Negative mg/dL (0.2-1.0) 01/28/19 21:00 Ur Leukocyte Esterase Negative (NEGATIVE) 01/28/19 21:00 lab noted Assessment: 01/29/19 09:18 withdrawal sx hypertension Plan: continue detox begin lisinopril clonidine prn
[2019-01-29] MEDS ORDERED: LISINOPRIL 10 MG TABLET (FP) PO SCH (10:00)
[2019-01-29] MEDS: LISINOPRIL 10 MG TABLET (FP) PO SCH ×2 (10:05→22:11)
[2019-01-29] MEDS: PRENATAL VITAMINS W/ FOLIC ACID TABLET (FP) PO SCH (10:05)
[2019-01-29] MEDS: NICOTINE 14 MG/24 HOURS TOPICAL PATCH TD SCH (10:05)
[2019-01-29] MEDS: SERTRALINE HCL 50 MG TABLET (FP) PO SCH (10:07)
[2019-01-29] MEDS ORDERED: COLLOIDAL OATMEAL 1 BAR EACH TP PRN (10:15)
[2019-01-29 10:35] LABS: HEMOGLOBIN 13.8 GM/dL (11.7-16.9); MCH 34.2 pg (25.7-33.7); MCHC 33.6 g/dl (32.0-35.9); MEAN CELL VOLUME 101.8 fl (80-96); MEAN PLT VOLUME 9.6 fl (7.5-11.1); PLATELET COUNT 237 K/MM3 (134-434); RBC 4.03 M/mm3 (4.00-5.60); RDW 13.8 % (11.9-15.9); WHITE BLOOD COUNT 4.8 K/mm3 (4.0-10.0)
[2019-01-29 11:35] LABS: ALBUMIN 3.1 g/dl (3.4-5.0); ALK PHOS 79 U/L (45-117); ANION GAP 5 MMOL/L (8-16); BILIRUBIN,TOTAL 0.2 mg/dL (0.2-1); BLOOD UREA NITROGEN 16 mg/dL (7-18); CALCIUM 8.5 mg/dL (8.5-10.1); CHLORIDE 110 mmol/L (98-107); CO2 27 mmol/L (21-32); CREATININE 1.1 mg/dL (0.55-1.3); GLUCOSE,RANDOM 88 mg/dL (74-106); POTASSIUM 4.3 mmol/L (3.5-5.1); SGOT/AST 19 U/L (15-37); SGPT/ALT 21 U/L (13-61); SODIUM 142 mmol/L (136-145); TOT PROT 6.3 g/dl (6.4-8.2)
[2019-01-29] MEDS: ASPIRIN 81 MG CHEWABLE TABLETS PO SCH (15:02)
[2019-01-29] MEDS ORDERED: QUEtiapine FUMARATE 100 MG TABLET (FP) PO SCH (22:00)
[2019-01-29] MEDS: THIAMINE HCL 100 MG TABLET (FP) PO SCH (22:10)
[2019-01-29] MEDS: QUEtiapine FUMARATE 50 MG TABLET PO SCH (22:11)
[2019-01-29] MEDS: MELATONIN 5 MG TABLETS PO PRN (22:11)
[2019-01-30] MEDS: chlordiazePOXIDE HCL 25 MG CAPSULE PO SCH ×3 (05:55→17:31)
[2019-01-30] MEDS: ACETAMINOPHEN 325 MG TABLET (FP) PO PRN (05:55)
[2019-01-30] MEDS: ASPIRIN 81 MG CHEWABLE TABLETS PO SCH (10:21)
[2019-01-30] MEDS: PRENATAL VITAMINS W/ FOLIC ACID TABLET (FP) PO SCH (10:21)
[2019-01-30] MEDS: SERTRALINE HCL 50 MG TABLET (FP) PO SCH (10:22)
[2019-01-30] MEDS: NICOTINE 14 MG/24 HOURS TOPICAL PATCH TD SCH (10:22)
[2019-01-30] MEDS: LISINOPRIL 10 MG TABLET (FP) PO SCH ×2 (10:23→22:22)
--- NOTE | 2019-01-30 16:49 | PN ---
S CIWA - CIWA Score Nausea/Vomitin-No Nausea/No Vomiting Muscle Tremors: None Anxiety: 3 Agitation: 1-Slight > Activity Paroxysmal Sweats: 3 Orientation: 0-Oriented Tacttile Disturbances: 1-Very Mild Itch/Numbness Auditory Disturbances: 0-None Visual Disturbances: 0-None Headache: 3-Moderate CIWA-Ar Total Score: 11 S Progress Note (SOAP) Subjective: Sweating, H/A, Anxious. Objective: PATIENT A & O X 3, OBSERVED AMBULATING ON UNIT. IN NO ACUTE DISTRESS. 01/30/19 16:47 Vital Signs Temperature 97.4 F L 01/30/19 13:38 Pulse Rate 80 01/30/19 13:38 Respiratory Rate 18 01/30/19 13:38 Blood Pressure 112/63 01/30/19 13:38 O2 Sat by Pulse Oximetry (%) Laboratory Tests 01/28/19 01/29/19 01/29/19 21:00 05:16 06:00 WBC RBC Hgb Hct MCV MCH MCHC RDW Plt Count MPV Sodium Potassium Chloride Carbon Dioxide Anion Gap BUN Creatinine Creat Clearance w eGFR POC Glucometer 110 Random Glucose Calcium Total Bilirubin AST ALT Alkaline Phosphatase Total Protein Albumin Urine Color Straw Urine Appearance Clear Urine pH 5.0 Ur Specific [place] 1.009 L Urine Protein Negative Urine Glucose (UA) Negative Urine Ketones Negative Urine Blood Negative Urine Nitrite Negative Urine Bilirubin Negative Urine Urobilinogen Negative Ur Leukocyte Esterase Negative RPR Titer HIV 1&2 Antibody Screen Negative HIV P24 Antigen Negative 01/29/19 01/29/19 01/29/19 07:00 07:00 07:00 WBC 4.8 RBC 4.03 Hgb 13.8 Hct 41.0 MCV 101.8 H MCH 34.2 H MCHC 33.6 RDW 13.8 Plt Count 237 D MPV 9.6 D Sodium 142 Potassium 4.3 Chloride 110 H Carbon Dioxide 27 Anion Gap 5 L BUN 16 Creatinine 1.1 Creat Clearance w eGFR > 60 POC Glucometer Random Glucose 88 Calcium 8.5 Total Bilirubin 0.2 AST 19 ALT 21 Alkaline Phosphatase 79 Total Protein 6.3 L Albumin 3.1 L Urine Color Urine Appearance Urine pH Ur Specific [place] Urine Protein Urine Glucose (UA) Urine Ketones Urine Blood Urine Nitrite Urine Bilirubin Urine Urobilinogen Ur Leukocyte Esterase RPR Titer Nonreactive HIV 1&2 Antibody Screen HIV P24 Antigen 01/30/19 05:54 WBC RBC Hgb Hct MCV MCH MCHC RDW Plt Count MPV Sodium Potassium Chloride Carbon Dioxide Anion Gap BUN Creatinine Creat Clearance w eGFR POC Glucometer 103 Random Glucose Calcium Total Bilirubin AST ALT Alkaline Phosphatase Total Protein Albumin Urine Color Urine Appearance Urine pH Ur Specific [place] Urine Protein Urine Glucose (UA) Urine Ketones Urine Blood Urine Nitrite Urine Bilirubin Urine Urobilinogen Ur Leukocyte Esterase RPR Titer HIV 1&2 Antibody Screen HIV P24 Antigen LABS NOTED. Assessment: 01/30/19 16:48 WITHDRAWAL SYMPTOMS. Plan: CONTINUE DETOX. INCREASE DAILY PO FLUID INTAKE.
[2019-01-30] MEDS: chlordiazePOXIDE 5 MG CAPSULE PO SCH (22:21)
[2019-01-30] MEDS: THIAMINE HCL 100 MG TABLET (FP) PO SCH (22:21)
[2019-01-30] MEDS: QUEtiapine FUMARATE 50 MG TABLET PO SCH (22:21)
[2019-01-30] MEDS: guaiFENesin/D-METHORPHAN HB 10 ML UNIT-DOSE CUPS PO PRN (22:23)
[2019-01-30] MEDS: MELATONIN 5 MG TABLETS PO PRN (22:24)
[2019-01-31] MEDS: chlordiazePOXIDE 5 MG CAPSULE PO SCH ×3 (06:51→17:59)
[2019-01-31] MEDS: SERTRALINE HCL 50 MG TABLET (FP) PO SCH (10:11)
[2019-01-31] MEDS: PRENATAL VITAMINS W/ FOLIC ACID TABLET (FP) PO SCH (10:11)
[2019-01-31] MEDS: ASPIRIN 81 MG CHEWABLE TABLETS PO SCH (10:11)
[2019-01-31] MEDS: NICOTINE 14 MG/24 HOURS TOPICAL PATCH TD SCH (10:12)
[2019-01-31] MEDS: LISINOPRIL 10 MG TABLET (FP) PO SCH ×2 (10:14→22:08)
[2019-01-31] MEDS: ACETAMINOPHEN 325 MG TABLET (FP) PO PRN ×2 (10:14→22:11)
--- NOTE | 2019-01-31 13:52 | PN ---
BHS Progress Note (SOAP) Subjective: Interrupted Sleep, Diarrhea, Body Aches, Anxious. Objective: PATIENT A & O X 3, OBSERVED AMBULATING ON UNIT. IN NO ACUTE DISTRESS. 01/31/19 13:47 Vital Signs Temperature 98.9 F 01/31/19 09:27 Pulse Rate 98 H 01/31/19 09:27 Respiratory Rate 18 01/31/19 09:27 Blood Pressure 98/64 01/31/19 09:27 O2 Sat by Pulse Oximetry (%) Laboratory Tests 01/28/19 01/29/19 01/29/19 21:00 05:16 06:00 WBC RBC Hgb Hct MCV MCH MCHC RDW Plt Count MPV Sodium Potassium Chloride Carbon Dioxide Anion Gap BUN Creatinine Creat Clearance w eGFR POC Glucometer 110 Random Glucose Calcium Total Bilirubin AST ALT Alkaline Phosphatase Total Protein Albumin Urine Color Straw Urine Appearance Clear Urine pH 5.0 Ur Specific [place] 1.009 L Urine Protein Negative Urine Glucose (UA) Negative Urine Ketones Negative Urine Blood Negative Urine Nitrite Negative Urine Bilirubin Negative Urine Urobilinogen Negative Ur Leukocyte Esterase Negative RPR Titer HIV 1&2 Antibody Screen Negative HIV P24 Antigen Negative 01/29/19 01/29/19 01/29/19 07:00 07:00 07:00 WBC 4.8 RBC 4.03 Hgb 13.8 Hct 41.0 MCV 101.8 H MCH 34.2 H MCHC 33.6 RDW 13.8 Plt Count 237 D MPV 9.6 D Sodium 142 Potassium 4.3 Chloride 110 H Carbon Dioxide 27 Anion Gap 5 L BUN 16 Creatinine 1.1 Creat Clearance w eGFR > 60 POC Glucometer Random Glucose 88 Calcium 8.5 Total Bilirubin 0.2 AST 19 ALT 21 Alkaline Phosphatase 79 Total Protein 6.3 L Albumin 3.1 L Urine Color Urine Appearance Urine pH Ur Specific [place] Urine Protein Urine Glucose (UA) Urine Ketones Urine Blood Urine Nitrite Urine Bilirubin Urine Urobilinogen Ur Leukocyte Esterase RPR Titer Nonreactive HIV 1&2 Antibody Screen HIV P24 Antigen 01/30/19 05:54 WBC RBC Hgb Hct MCV MCH MCHC RDW Plt Count MPV Sodium Potassium Chloride Carbon Dioxide Anion Gap BUN Creatinine Creat Clearance w eGFR POC Glucometer 103 Random Glucose Calcium Total Bilirubin AST ALT Alkaline Phosphatase Total Protein Albumin Urine Color Urine Appearance Urine pH Ur Specific [place] Urine Protein Urine Glucose (UA) Urine Ketones Urine Blood Urine Nitrite Urine Bilirubin Urine Urobilinogen Ur Leukocyte Esterase RPR Titer HIV 1&2 Antibody Screen HIV P24 Antigen LABS NOTED. Assessment: 01/31/19 13:47 WITHDRAWAL SYMPTOMS. Plan: CONTINUE DETOX. INCREASE DAILY PO FLUID INTAKE. PRN IMMODIUM FOR DIARRHEA. PATIENT REPORTS HISTORY OF PRESCRIPTION (OUTPATIENT) FOR METFORMIN FOR TREATMENT OF DM. HOWEVER, PATIENT REPORTS THAT HE HAD NOT TAKEN METFORMIN FOR 3- 4 MONTHS PRIOR TO ADMISSION TO DETOX. METFORMIN NOT ORDERED ON ADMISSION TO DETOX UNIT AND HELD FOR TIME BEING BECAUSE PATIENT'S ADMISSION RANDOM GLUCOSE LEVEL WAS WITHIN NORMAL LIMIT AND BGM'S DRAWN THUS FAR HAVE BEEN STABLE. PATIENT ADVISED TO FOLLOW-UP WITH HIS VOCATIONAL DIRECTOR AFTER DISCHARGE FORM DETOX UNIT FOR FURTHER MEDICAL EVALUATION. PATIENT VERBALIZED UNDERSTANDING OF RECOMMENDATION.
[2019-01-31] MEDS: VITAMINS A AND D TOPICAL OINTMENT 60 GM TUBE TP SCH ×2 (18:04→23:44)
[2019-01-31] MEDS: QUEtiapine FUMARATE 50 MG TABLET PO SCH (22:08)
[2019-01-31] MEDS: chlordiazePOXIDE HCL 10 MG CAPSULE PO SCH (22:08)
[2019-01-31] MEDS: THIAMINE HCL 100 MG TABLET (FP) PO SCH (22:09)
[2019-01-31] MEDS: MELATONIN 5 MG TABLETS PO PRN (22:10)
[2019-01-31] MEDS: guaiFENesin/D-METHORPHAN HB 10 ML UNIT-DOSE CUPS PO PRN (22:12)
[2019-02-01] MEDS: VITAMINS A AND D TOPICAL OINTMENT 60 GM TUBE TP SCH ×3 (06:16→18:52)
[2019-02-01] MEDS: chlordiazePOXIDE HCL 10 MG CAPSULE PO SCH ×3 (06:16→18:11)
[2019-02-01] MEDS: SERTRALINE HCL 50 MG TABLET (FP) PO SCH (10:21)
[2019-02-01] MEDS: PRENATAL VITAMINS W/ FOLIC ACID TABLET (FP) PO SCH (10:21)
[2019-02-01] MEDS: NICOTINE 14 MG/24 HOURS TOPICAL PATCH TD SCH (10:21)
[2019-02-01] MEDS: ASPIRIN 81 MG CHEWABLE TABLETS PO SCH (10:21)
[2019-02-01] MEDS: LISINOPRIL 10 MG TABLET (FP) PO SCH ×2 (10:21→22:24)
--- NOTE | 2019-02-01 15:37 | DS ---
[facility] Detox Discharge Summary Admission Date: 01/28/19 Discharge Date: 02/01/19 - History Present History: Alcohol Dependence Additional Comments: 53 years old male admitted on 01/28/19 for alcohol withdrawal stabilization [facility] Exam Results Vital Signs: Vital Signs Temperature 97.8 F 02/01/19 14:36 Pulse Rate 73 02/01/19 14:36 Respiratory Rate 18 02/01/19 14:36 Blood Pressure 111/68 02/01/19 14:36 O2 Sat by Pulse Oximetry (%) Pertinent Admission Physical Exam Findings: alcohol withdrawal sx Laboratory Last Values WBC 4.8 K/mm3 (4.0-10.0) 01/29/19 07:00 RBC 4.03 M/mm3 (4.00-5.60) 01/29/19 07:00 Hgb 13.8 GM/dL (11.7-16.9) 01/29/19 07:00 Hct 41.0 % (35.4-49) 01/29/19 07:00 MCV 101.8 fl (80-96) H 01/29/19 07:00 MCH 34.2 pg (25.7-33.7) H 01/29/19 07:00 MCHC 33.6 g/dl (32.0-35.9) 01/29/19 07:00 RDW 13.8 % (11.9-15.9) 01/29/19 07:00 Plt Count 237 K/MM3 (134-434) D 01/29/19 07:00 MPV 9.6 fl (7.5-11.1) D 01/29/19 07:00 Sodium 142 mmol/L (136-145) 01/29/19 07:00 Potassium 4.3 mmol/L (3.5-5.1) 01/29/19 07:00 Chloride 110 mmol/L (98-107) H 01/29/19 07:00 Carbon Dioxide 27 mmol/L (21-32) 01/29/19 07:00 Anion Gap 5 MMOL/L (8-16) L 01/29/19 07:00 BUN 16 mg/dL (7-18) 01/29/19 07:00 Creatinine 1.1 mg/dL (0.55-1.3) 01/29/19 07:00 Creat Clearance w eGFR > 60 (>60) 01/29/19 07:00 POC Glucometer 103 UNITS (80-120) 01/30/19 05:54 Random Glucose 88 mg/dL (74-106) 01/29/19 07:00 Calcium 8.5 mg/dL (8.5-10.1) 01/29/19 07:00 Total Bilirubin 0.2 mg/dL (0.2-1) 01/29/19 07:00 AST 19 U/L (15-37) 01/29/19 07:00 ALT 21 U/L (13-61) 01/29/19 07:00 Alkaline Phosphatase 79 U/L (45-117) 01/29/19 07:00 Total Protein 6.3 g/dl (6.4-8.2) L 01/29/19 07:00 Albumin 3.1 g/dl (3.4-5.0) L 01/29/19 07:00 Urine Color Straw 01/28/19 21:00 Urine Appearance Clear 01/28/19 21:00 Urine pH 5.0 (5.0-8.0) 01/28/19 21:00 Ur Specific [place] 1.009 (1.010-1.035) L 01/28/19 21:00 Urine Protein Negative (NEGATIVE) 01/28/19 21:00 Urine Glucose (UA) Negative (NEGATIVE) 01/28/19 21:00 Urine Ketones Negative (NEGATIVE) 01/28/19 21:00 Urine Blood Negative (NEGATIVE) 01/28/19 21:00 Urine Nitrite Negative (NEGATIVE) 01/28/19 21:00 Urine Bilirubin Negative (<2.0 mg/dL) 01/28/19 21:00 Urine Urobilinogen Negative mg/dL (0.2-1.0) 01/28/19 21:00 Ur Leukocyte Esterase Negative (NEGATIVE) 01/28/19 21:00 RPR Titer Nonreactive (NONREACTIVE) 01/29/19 07:00 HIV 1&2 Antibody Screen Negative 01/29/19 06:00 HIV P24 Antigen Negative 01/29/19 06:00 lab noted - Treatment Hospital Course: Detox Protocol Followed, Detoxed Safely, Responded well, Discharged Condition Good, Rehab Referral Accepted Patient has Accepted a Rehab Referral to: [facility] - Medication Discharge Medications: Ambulatory Orders Quetiapine Fumarate [Seroquel] 100 tab PO HS #30 tablet 05/26/18 Sertraline HCl [Zoloft -] 50 mg PO DAILY #30 tablet 05/26/18 Lisinopril 10 mg PO BID 30 Days #60 tablet 01/31/19 Metformin HCl [Glucophage] 500 mg PO BID #60 tablet 02/01/19 - Diagnosis (1) Alcohol dependence with uncomplicated withdrawal Current Visit: Yes Status: Acute (2) Substance induced mood disorder Current Visit: Yes Status: Suspected (3) Hypertension Current Visit: Yes Status: Chronic Qualifiers: Hypertension type: essential hypertension Qualified Code(s): I10 - Essential (primary) hypertension (4) Nicotine dependence Current Visit: Yes Status: Acute Qualifiers: Nicotine product type: cigarettes Substance use status: in withdrawal Qualified Code(s): F17.213 - Nicotine dependence, cigarettes, with withdrawal - AMA Did Patient Leave Against Medical Advice: No
[2019-02-01] MEDS: QUEtiapine FUMARATE 50 MG TABLET PO SCH (22:24)
[2019-02-01] MEDS: THIAMINE HCL 100 MG TABLET (FP) PO SCH (22:24)
[2019-02-01] MEDS: MELATONIN 5 MG TABLETS PO PRN (22:25)
[2019-02-02] MEDS: VITAMINS A AND D TOPICAL OINTMENT 60 GM TUBE TP SCH (07:29)
[2019-02-02 09:21] VITALS: BP 115/62; PULSE 74; TEMP 98.2
[2019-02-02] MEDS: NICOTINE 14 MG/24 HOURS TOPICAL PATCH TD SCH (09:37)
[2019-02-02] MEDS: ASPIRIN 81 MG CHEWABLE TABLETS PO SCH (09:37)
[2019-02-02] MEDS: PRENATAL VITAMINS W/ FOLIC ACID TABLET (FP) PO SCH (09:37)
[2019-02-02] MEDS: SERTRALINE HCL 50 MG TABLET (FP) PO SCH (09:37)
[2019-02-02] MEDS: LISINOPRIL 10 MG TABLET (FP) PO SCH (09:38)
--- NOTE | 2019-02-02 10:25 | DS ---
[facility] Detox Discharge Summary Admission Date: 01/28/19 Discharge Date: 02/02/19 - History Present History: Alcohol Dependence Additional Comments: 53 years old male admitted on 02/25/19 for alcohol withdrawal stabilization completed detox regimen [facility] Pertinent Past History: change discharge date to 02/02/19 - Physical Exam Results Vital Signs: Vital Signs Temperature 98.2 F 02/02/19 09:15 Pulse Rate 74 02/02/19 09:15 Respiratory Rate 18 02/02/19 09:15 Blood Pressure 115/62 02/02/19 09:15 O2 Sat by Pulse Oximetry (%) Pertinent Admission Physical Exam Findings: alcohol withdrawal sx Laboratory Last Values WBC 4.8 K/mm3 (4.0-10.0) 01/29/19 07:00 RBC 4.03 M/mm3 (4.00-5.60) 01/29/19 07:00 Hgb 13.8 GM/dL (11.7-16.9) 01/29/19 07:00 Hct 41.0 % (35.4-49) 01/29/19 07:00 MCV 101.8 fl (80-96) H 01/29/19 07:00 MCH 34.2 pg (25.7-33.7) H 01/29/19 07:00 MCHC 33.6 g/dl (32.0-35.9) 01/29/19 07:00 RDW 13.8 % (11.9-15.9) 01/29/19 07:00 Plt Count 237 K/MM3 (134-434) D 01/29/19 07:00 MPV 9.6 fl (7.5-11.1) D 01/29/19 07:00 Sodium 142 mmol/L (136-145) 01/29/19 07:00 Potassium 4.3 mmol/L (3.5-5.1) 01/29/19 07:00 Chloride 110 mmol/L (98-107) H 01/29/19 07:00 Carbon Dioxide 27 mmol/L (21-32) 01/29/19 07:00 Anion Gap 5 MMOL/L (8-16) L 01/29/19 07:00 BUN 16 mg/dL (7-18) 01/29/19 07:00 Creatinine 1.1 mg/dL (0.55-1.3) 01/29/19 07:00 Creat Clearance w eGFR > 60 (>60) 01/29/19 07:00 POC Glucometer 124 UNITS (80-120) 02/02/19 06:13 Random Glucose 88 mg/dL (74-106) 01/29/19 07:00 Calcium 8.5 mg/dL (8.5-10.1) 01/29/19 07:00 Total Bilirubin 0.2 mg/dL (0.2-1) 01/29/19 07:00 AST 19 U/L (15-37) 01/29/19 07:00 ALT 21 U/L (13-61) 01/29/19 07:00 Alkaline Phosphatase 79 U/L (45-117) 01/29/19 07:00 Total Protein 6.3 g/dl (6.4-8.2) L 01/29/19 07:00 Albumin 3.1 g/dl (3.4-5.0) L 01/29/19 07:00 Urine Color Straw 01/28/19 21:00 Urine Appearance Clear 01/28/19 21:00 Urine pH 5.0 (5.0-8.0) 01/28/19 21:00 Ur Specific [place] 1.009 (1.010-1.035) L 01/28/19 21:00 Urine Protein Negative (NEGATIVE) 01/28/19 21:00 Urine Glucose (UA) Negative (NEGATIVE) 01/28/19 21:00 Urine Ketones Negative (NEGATIVE) 01/28/19 21:00 Urine Blood Negative (NEGATIVE) 01/28/19 21:00 Urine Nitrite Negative (NEGATIVE) 01/28/19 21:00 Urine Bilirubin Negative (<2.0 mg/dL) 01/28/19 21:00 Urine Urobilinogen Negative mg/dL (0.2-1.0) 01/28/19 21:00 Ur Leukocyte Esterase Negative (NEGATIVE) 01/28/19 21:00 RPR Titer Nonreactive (NONREACTIVE) 01/29/19 07:00 HIV 1&2 Antibody Screen Negative 01/29/19 06:00 HIV P24 Antigen Negative 01/29/19 06:00 lab noted - Treatment Hospital Course: Detox Protocol Followed, Detoxed Safely, Responded well, Discharged Condition Good, Rehab Referral Accepted Patient has Accepted a Rehab Referral to: [facility] - Medication Discharge Medications: Ambulatory Orders Quetiapine Fumarate [Seroquel] 100 tab PO HS #30 tablet 05/26/18 Sertraline HCl [Zoloft -] 50 mg PO DAILY #30 tablet 05/26/18 Lisinopril 10 mg PO BID 30 Days #60 tablet 01/31/19 Metformin HCl [Glucophage] 500 mg PO BID #60 tablet 02/01/19 Quetiapine Fumarate [Seroquel -] 50 mg PO HS #30 tablet 02/02/19 - Diagnosis (1) Alcohol dependence with uncomplicated withdrawal Current Visit: Yes Status: Acute (2) Substance induced mood disorder Current Visit: Yes Status: Suspected (3) Hypertension Current Visit: Yes Status: Chronic Qualifiers: Hypertension type: essential hypertension Qualified Code(s): I10 - Essential (primary) hypertension (4) Nicotine dependence Current Visit: Yes Status: Acute Qualifiers: Nicotine product type: cigarettes Substance use status: in withdrawal Qualified Code(s): F17.213 - Nicotine dependence, cigarettes, with withdrawal - AMA Did Patient Leave Against Medical Advice: No
--- NOTE | 2019-02-02 11:18 | PN ---
[facility] Progress Note Note: Patient is discharged today. Script for 30 days supply of Seroquel 50 mg po HS is electronically transmitted to [facility] at [address] [place] [id number]
== END 2019-02-02 10:49 | disposition left against medical advice (07) | DRG 770 ==
LOC: YASAS 15:55 → Y3N 20:01
PROVIDERS: ADMIT Surgery; ATTEND Surgery
PROC: HZ2ZZZZ Detoxification Services for Substance Abuse Treatment (ICD-10-PCS; principal; 2019-01-28)
DX: F10.230 Alcohol dependence with withdrawal, uncomplicated (principal); F14.20 Cocaine dependence, uncomplicated; F12.20 Cannabis dependence, uncomplicated; F17.213 Nicotine dependence, cigarettes, with withdrawal; F19.282 Other psychoactive substance dependence with psychoactive substance-induced sleep disorder; F19.24 Other psychoactive substance dependence with psychoactive substance-induced mood disorder; F43.10 Post-traumatic stress disorder, unspecified; F41.9 Anxiety disorder, unspecified; F33.9 Major depressive disorder, recurrent, unspecified; F31.9 Bipolar disorder, unspecified; E11.9 Type 2 diabetes mellitus without complications; Z79.84 Long term (current) use of oral hypoglycemic drugs; Z91.5 Personal history of self-harm; Z91.19 Patient's noncompliance with other medical treatment and regimen
CPT/HCPCS: 36415; 80053; 81003; 82962; 85027; 86593; 87389

== ENCOUNTER 2019-06-09 09:47 | Inpatient (IN) | payer OTHER ==
[2019-06-09 11:30] VITALS: BMI 28.6
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
[2019-06-09] MEDS ORDERED: hydrOXYzine PAMOATE 25 MG CAPSULE (FP) PO PRN (12:56)
[2019-06-09] MEDS ORDERED: MAGNESIUM CITRATE 300 ML BOTTLE PO PRN (12:56)
[2019-06-09] MEDS ORDERED: MAGNESIUM HYDROX 2400MG/30ML ORAL SUSPENSION 30 ML CUP PO PRN (12:56)
[2019-06-09] MEDS ORDERED: MENTHOL/PHENOL 1 EACH UD MM PRN (12:56)
[2019-06-09] MEDS ORDERED: ACETAMINOPHEN 325 MG TABLET (FP) PO PRN ×2 (12:56)
[2019-06-09] MEDS ORDERED: BISMUTH SUBSALICYLATE 524 MG/30 ML UD PO PRN (12:56)
[2019-06-09] MEDS ORDERED: IBUPROFEN 400 MG TABLET (FP) PO PRN (12:56)
[2019-06-09] MEDS ORDERED: MAG HYDROX/AL HYDROX/SIMETH 30 ML UNIT-DOSE CUP PO PRN (12:56)
[2019-06-09] MEDS ORDERED: diazePAM 5 MG TABLET PO PRN (12:59)
[2019-06-09] MEDS: ASPIRIN COATED 81 MG TABLET.EC PO SCH (13:25)
[2019-06-09] MEDS: diazePAM 5 MG TABLET PO SCH ×2 (13:25→22:48)
[2019-06-09] MEDS: INSULIN SLIDING SCALE (NOVOLOG) 1 VIAL SQ SCH ×2 (16:47→22:48)
[2019-06-09] MEDS: THIAMINE HCL 100 MG TABLET (FP) PO SCH (22:48)
[2019-06-09] MEDS: MELATONIN 5 MG TABLETS PO PRN (22:49)
[2019-06-10] MEDS: diazePAM 5 MG TABLET PO SCH ×3 (06:21→22:21)
[2019-06-10] MEDS: INSULIN SLIDING SCALE (NOVOLOG) 1 VIAL SQ SCH ×5 (07:44→22:47)
[2019-06-10] MEDS ORDERED: COLLOIDAL OATMEAL 1 BAR EACH TP PRN (08:38)
--- NOTE | 2019-06-10 08:40 | PN ---
S CIWA - CIWA Score Nausea/Vomitin-Mild Nausea/No Vomiting Muscle Tremors: 2 Anxiety: 2 Agitation: 2 Paroxysmal Sweats: 1-Minimal Palms Moist Orientation: 0-Oriented Tacttile Disturbances: 1-Very Mild Itch/Numbness Auditory Disturbances: 0-None Visual Disturbances: 0-None Headache: 2-Mild CIWA-Ar Total Score: 11 S Progress Note (SOAP) Subjective: vitamin A + D ointment aveeno soap long history of hypertension non compliance with lisinopril nor metformin bgm within acceptable range no insulin required headaches tremor discuss risks of bp elevation Objective: 06/10/19 10:51 Vital Signs Temperature 97.4 F L 06/10/19 09:06 Pulse Rate 86 06/10/19 09:06 Respiratory Rate 18 06/10/19 09:06 Blood Pressure 141/80 06/10/19 09:06 O2 Sat by Pulse Oximetry (%) Laboratory Last Values WBC 4.1 K/mm3 (4.0-10.0) 06/10/19 07:50 RBC 4.46 M/mm3 (4.00-5.60) 06/10/19 07:50 Hgb 15.1 GM/dL (11.7-16.9) 06/10/19 07:50 Hct 45.7 % (35.4-49) 06/10/19 07:50 MCV 102.5 fl (80-96) H 06/10/19 07:50 MCH 33.9 pg (25.7-33.7) H 06/10/19 07:50 MCHC 33.1 g/dl (32.0-35.9) 06/10/19 07:50 RDW 14.1 % (11.9-15.9) 06/10/19 07:50 Plt Count 177 K/MM3 (134-434) D 06/10/19 07:50 MPV 10.5 fl (7.5-11.1) 06/10/19 07:50 Sodium 138 mmol/L (136-145) 06/10/19 07:50 Potassium 4.2 mmol/L (3.5-5.1) 06/10/19 07:50 Chloride 106 mmol/L (98-107) 06/10/19 07:50 Carbon Dioxide 25 mmol/L (21-32) 06/10/19 07:50 Anion Gap 8 MMOL/L (8-16) 06/10/19 07:50 BUN 11.9 mg/dL (7-18) 06/10/19 07:50 Creatinine 0.9 mg/dL (0.55-1.3) 06/10/19 07:50 Est GFR (CKD-EPI)AfAm 113.41 06/10/19 07:50 Est GFR (CKD-EPI)NonAf 97.85 06/10/19 07:50 POC Glucometer 125 UNITS (80-120) 06/10/19 06:54 Random Glucose 104 mg/dL (74-106) 06/10/19 07:50 Calcium 8.6 mg/dL (8.5-10.1) 06/10/19 07:50 Total Bilirubin 0.4 mg/dL (0.2-1) 06/10/19 07:50 AST 15 U/L (15-37) 06/10/19 07:50 ALT 22 U/L (13-61) 06/10/19 07:50 Alkaline Phosphatase 74 U/L (45-117) 06/10/19 07:50 Total Protein 6.8 g/dl (6.4-8.2) 06/10/19 07:50 Albumin 3.6 g/dl (3.4-5.0) 06/10/19 07:50 lab noted Assessment: 06/10/19 10:51 alcohol withdrawal sx Plan: continue alcohol detox
[2019-06-10] MEDS: PRENATAL VITAMINS W/ FOLIC ACID TABLET (FP) PO SCH (09:26)
[2019-06-10] MEDS: ASPIRIN COATED 81 MG TABLET.EC PO SCH (09:26)
[2019-06-10 10:06] LABS: HEMATOCRIT 45.7 % (35.4-49); HEMOGLOBIN 15.1 GM/dL (11.7-16.9); MCH 33.9 pg (25.7-33.7); MCHC 33.1 g/dl (32.0-35.9); MEAN CELL VOLUME 102.5 fl (80-96); MEAN PLT VOLUME 10.5 fl (7.5-11.1); PLATELET COUNT 177 K/MM3 (134-434); RBC 4.46 M/mm3 (4.00-5.60); RDW 14.1 % (11.9-15.9); WHITE BLOOD COUNT 4.1 K/mm3 (4.0-10.0)
[2019-06-10 10:24] LABS: ALBUMIN 3.6 g/dl (3.4-5.0); BILIRUBIN,TOTAL 0.4 mg/dL (0.2-1); BLOOD UREA NITROGEN 11.9 mg/dL (7-18); CALCIUM 8.6 mg/dL (8.5-10.1); CREATININE 0.9 mg/dL (0.55-1.3); POTASSIUM 4.2 mmol/L (3.5-5.1); TOT PROT 6.8 g/dl (6.4-8.2)
[2019-06-10] MEDS: VITAMINS A AND D TOPICAL OINTMENT 60 GM TUBE TP SCH ×4 (10:49→23:09)
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
[2019-06-10] MEDS: THIAMINE HCL 100 MG TABLET (FP) PO SCH (22:21)
[2019-06-10] MEDS: MELATONIN 5 MG TABLETS PO PRN (22:21)
[2019-06-11] MEDS: diazePAM 5 MG TABLET PO SCH ×2 (05:44→17:44)
[2019-06-11] MEDS: VITAMINS A AND D TOPICAL OINTMENT 60 GM TUBE TP SCH ×3 (07:22→18:12)
[2019-06-11] MEDS: INSULIN SLIDING SCALE (NOVOLOG) 1 VIAL SQ SCH ×4 (07:22→22:31)
[2019-06-11] MEDS: PRENATAL VITAMINS W/ FOLIC ACID TABLET (FP) PO SCH (10:35)
[2019-06-11] MEDS: ASPIRIN COATED 81 MG TABLET.EC PO SCH (10:35)
[2019-06-11] MEDS: SERTRALINE HCL 50 MG TABLET (FP) PO SCH (10:36)
[2019-06-11] MEDS ORDERED: cloNIDine HCL 0.1 MG TABLET PO PRN (11:40)
--- NOTE | 2019-06-11 11:46 | PN ---
S CIWA - CIWA Score Nausea/Vomitin-Mild Nausea/No Vomiting Muscle Tremors: 2 Anxiety: 3 Agitation: 2 Paroxysmal Sweats: No Perspiration Orientation: 0-Oriented Tacttile Disturbances: 0-None Auditory Disturbances: 0-None Visual Disturbances: 0-None Headache: 0-None Present CIWA-Ar Total Score: 8 [facility] Progress Note (SOAP) Subjective: 54 years old male admitted on 06/09/19 for alcohol withdrawal sx history of hypertension and diabetes treated with lisinopril and metformin last dose 03/2019 bgm within acceptable level continue hold metformin bp systolic between 150-130 continue clonidin prn 0.1 mg denies chest pain no shortness of breath no dizziness no headaches cardiac S1S2 patient agrees to return to [facility] for bp and glycemia monitoring Objective: 06/11/19 11:47 Vital Signs Temperature 98.2 F 06/11/19 10:48 Pulse Rate 90 06/11/19 10:48 Respiratory Rate 19 06/11/19 10:48 Blood Pressure 139/87 06/11/19 10:48 O2 Sat by Pulse Oximetry (%) Laboratory Last Values WBC 4.1 K/mm3 (4.0-10.0) 06/10/19 07:50 RBC 4.46 M/mm3 (4.00-5.60) 06/10/19 07:50 Hgb 15.1 GM/dL (11.7-16.9) 06/10/19 07:50 Hct 45.7 % (35.4-49) 06/10/19 07:50 MCV 102.5 fl (80-96) H 06/10/19 07:50 MCH 33.9 pg (25.7-33.7) H 06/10/19 07:50 MCHC 33.1 g/dl (32.0-35.9) 06/10/19 07:50 RDW 14.1 % (11.9-15.9) 06/10/19 07:50 Plt Count 177 K/MM3 (134-434) D 06/10/19 07:50 MPV 10.5 fl (7.5-11.1) 06/10/19 07:50 Sodium 138 mmol/L (136-145) 06/10/19 07:50 Potassium 4.2 mmol/L (3.5-5.1) 06/10/19 07:50 Chloride 106 mmol/L (98-107) 06/10/19 07:50 Carbon Dioxide 25 mmol/L (21-32) 06/10/19 07:50 Anion Gap 8 MMOL/L (8-16) 06/10/19 07:50 BUN 11.9 mg/dL (7-18) 06/10/19 07:50 Creatinine 0.9 mg/dL (0.55-1.3) 06/10/19 07:50 Est GFR (CKD-EPI)AfAm 113.41 06/10/19 07:50 Est GFR (CKD-EPI)NonAf 97.85 06/10/19 07:50 POC Glucometer 103 UNITS (80-120) 06/11/19 05:43 Random Glucose 104 mg/dL (74-106) 06/10/19 07:50 Calcium 8.6 mg/dL (8.5-10.1) 06/10/19 07:50 Total Bilirubin 0.4 mg/dL (0.2-1) 06/10/19 07:50 AST 15 U/L (15-37) 06/10/19 07:50 ALT 22 U/L (13-61) 06/10/19 07:50 Alkaline Phosphatase 74 U/L (45-117) 06/10/19 07:50 Total Protein 6.8 g/dl (6.4-8.2) 06/10/19 07:50 Albumin 3.6 g/dl (3.4-5.0) 06/10/19 07:50 RPR Titer Nonreactive (NONREACTIVE) 06/10/19 07:50 lab noted Assessment: 06/11/19 11:53 alcohol withdrawal sx Plan: continue alcohol detox
[2019-06-11] MEDS ORDERED: QUEtiapine FUMARATE 100 MG TABLET (FP) PO SCH (22:00)
[2019-06-11] MEDS: THIAMINE HCL 100 MG TABLET (FP) PO SCH (22:29)
[2019-06-11] MEDS: MELATONIN 5 MG TABLETS PO PRN (22:30)
[2019-06-12] MEDS: VITAMINS A AND D TOPICAL OINTMENT 60 GM TUBE TP SCH ×2 (00:23→06:41)
[2019-06-12] MEDS ORDERED: diazePAM 5 MG TABLET PO ONE (06:00)
[2019-06-12] MEDS: INSULIN SLIDING SCALE (NOVOLOG) 1 VIAL SQ SCH (06:42)
[2019-06-12 07:10] VITALS: BP 159/91; PULSE 87; TEMP 97.4
[2019-06-12] MEDS: SERTRALINE HCL 50 MG TABLET (FP) PO SCH (09:02)
[2019-06-12] MEDS: PRENATAL VITAMINS W/ FOLIC ACID TABLET (FP) PO SCH (09:02)
[2019-06-12] MEDS: ASPIRIN COATED 81 MG TABLET.EC PO SCH (09:02)
--- NOTE | 2019-06-12 09:11 | PN ---
S Progress Note Note: Psychiatric nurse practitoner note: Patient able to complete detox and accept all psychotropic medications during his stay. A 30 day supply of zoloft 50mg + Seroquel 100mg was electronically sent to [facility] pharmacy [address], [address] [place] [address].
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
== END 2019-06-12 09:05 | disposition home or self-care (01) | DRG 774 ==
LOC: YASAS 09:47 → Y3N 12:54
PROVIDERS: ADMIT Surgery; ATTEND Surgery
PROC: HZ2ZZZZ Detoxification Services for Substance Abuse Treatment (ICD-10-PCS; principal; 2019-06-09)
DX: F10.230 Alcohol dependence with withdrawal, uncomplicated (principal); F14.20 Cocaine dependence, uncomplicated; F12.20 Cannabis dependence, uncomplicated; F17.210 Nicotine dependence, cigarettes, uncomplicated; F19.24 Other psychoactive substance dependence with psychoactive substance-induced mood disorder; F31.9 Bipolar disorder, unspecified; F43.10 Post-traumatic stress disorder, unspecified; F32.9 Major depressive disorder, single episode, unspecified; I10 Essential (primary) hypertension; E11.9 Type 2 diabetes mellitus without complications; Z79.84 Long term (current) use of oral hypoglycemic drugs; Z87.828 Personal history of other (healed) physical injury and trauma
CPT/HCPCS: 36415; 80053; 82962; 85027; 86593

== ENCOUNTER 2021-01-06 21:10 | Inpatient (IN) | payer OTHER ==
[2021-01-07] MEDS ORDERED: ACETAMINOPHEN 325 MG TABLET (FP) PO PRN (04:11)
[2021-01-07] MEDS ORDERED: METHOCARBAMOL 500 MG TABLET PO PRN (04:11)
[2021-01-07] MEDS ORDERED: MAGNESIUM CITRATE 300 ML BOTTLE PO PRN (04:11)
[2021-01-07] MEDS ORDERED: chlordiazePOXIDE HCL 25 MG CAPSULE PO PRN (04:11)
[2021-01-07] MEDS ORDERED: BISMUTH SUBSALICYLATE 524 MG/30 ML UD PO PRN (04:11)
[2021-01-07] MEDS ORDERED: MAG HYDROX/AL HYDROX/SIMETH 30 ML UNIT-DOSE CUP PO PRN (04:11)
[2021-01-07] MEDS ORDERED: MAGNESIUM HYDROX 2400MG/30ML ORAL SUSPENSION 30 ML CUP PO PRN (04:11)
[2021-01-07] MEDS ORDERED: MENTHOL/PHENOL 1 EACH UD MM PRN (04:11)
[2021-01-07] MEDS ORDERED: ONDANSETRON *ODT* 4 MG TABLET SL PRN (04:11)
[2021-01-07] MEDS ORDERED: NICOTINE POLACRILEX 2 MG GUM BUC PRN (04:11)
[2021-01-07] MEDS ORDERED: chlordiazePOXIDE HCL 25 MG CAPSULE ONE ×2 (04:23→09:27)
[2021-01-07] MEDS: chlordiazePOXIDE HCL 25 MG CAPSULE PO SCH ×4 (04:24→22:24)
[2021-01-07] MEDS: metFORMIN HCL 500 MG TABLET (FP) PO SCH ×2 (08:01→17:45)
[2021-01-07] MEDS: ASPIRIN COATED 81 MG TABLET.EC PO SCH (10:06)
[2021-01-07] MEDS: LISINOPRIL 10 MG TABLET PO SCH ×2 (10:06→22:23)
[2021-01-07] MEDS: PRENATAL VITAMINS W/ FOLIC ACID TABLET (FP) PO SCH (10:07)
[2021-01-07] MEDS: NICOTINE 14 MG/24 HOURS TOPICAL PATCH TD SCH (10:07)
[2021-01-07] MEDS: IBUPROFEN 400 MG TABLET (FP) PO PRN (16:59)
[2021-01-07] MEDS: ACETAMINOPHEN 325 MG TABLET (FP) PO PRN (20:44)
[2021-01-07] MEDS: COLLOIDAL OATMEAL 1 BAR EACH TP PRN (20:45)
[2021-01-07] MEDS: traZODone HCL 100 MG TABLET (FP) PO SCH (22:23)
[2021-01-07] MEDS: THIAMINE HCL 100 MG TABLET (FP) PO SCH (22:23)
[2021-01-07] MEDS: MELATONIN 5 MG TABLETS PO SCH (22:24)
[2021-01-08] MEDS: chlordiazePOXIDE HCL 25 MG CAPSULE PO SCH ×4 (05:37→22:43)
[2021-01-08] MEDS: IBUPROFEN 400 MG TABLET (FP) PO PRN ×3 (05:39→20:17)
[2021-01-08] MEDS: metFORMIN HCL 500 MG TABLET (FP) PO SCH ×2 (06:32→17:43)
[2021-01-08] MEDS: LISINOPRIL 10 MG TABLET PO SCH ×2 (10:39→22:42)
[2021-01-08] MEDS: PRENATAL VITAMINS W/ FOLIC ACID TABLET (FP) PO SCH (10:39)
[2021-01-08] MEDS: ASPIRIN COATED 81 MG TABLET.EC PO SCH (10:39)
[2021-01-08] MEDS: NICOTINE 14 MG/24 HOURS TOPICAL PATCH TD SCH (10:40)
[2021-01-08] MEDS: SERTRALINE HCL 50 MG TABLET (FP) PO SCH (10:40)
[2021-01-08 12:09] LABS: POTASSIUM 3.4 mmol/L (3.5-5.1)
[2021-01-08 12:10] LABS: HEMATOCRIT 42.6 % (35.4-49); HEMOGLOBIN 14.4 GM/dL (11.7-16.9); MCH 34.5 pg (25.7-33.7); MCHC 33.9 g/dl (32.0-35.9); MEAN PLT VOLUME 11.4 fl (7.5-11.1); PLATELET COUNT 132 K/MM3 (134-434); RBC 4.17 M/mm3 (4.00-5.60); RDW 15.3 % (11.9-15.9); WHITE BLOOD COUNT 4.1 K/mm3 (4.0-10.0)
[2021-01-08 12:16] LABS: CALCIUM 8.5 mg/dL (8.5-10.1)
[2021-01-08 12:17] LABS: ALBUMIN 3.3 g/dl (3.4-5.0); BLOOD UREA NITROGEN 10.9 mg/dL (7-18)
[2021-01-08 12:22] LABS: BILIRUBIN,TOTAL 0.8 mg/dL (0.2-1); TOT PROT 6.2 g/dl (6.4-8.2)
[2021-01-08] MEDS ORDERED: traZODone HCL 50 MG TABLET (FP) ONE (21:36)
[2021-01-08] MEDS: ACETAMINOPHEN 325 MG TABLET (FP) PO PRN (22:41)
[2021-01-08] MEDS: THIAMINE HCL 100 MG TABLET (FP) PO SCH (22:42)
[2021-01-08] MEDS: MELATONIN 5 MG TABLETS PO SCH (22:42)
[2021-01-08] MEDS: traZODone HCL 100 MG TABLET (FP) PO SCH (22:43)
[2021-01-09] MEDS ORDERED: chlordiazePOXIDE HCL 10 MG CAPSULE PO PRN
[2021-01-09] MEDS: chlordiazePOXIDE HCL 10 MG CAPSULE PO SCH ×4 (06:36→22:54)
[2021-01-09] MEDS: metFORMIN HCL 500 MG TABLET (FP) PO SCH ×2 (06:40→17:40)
[2021-01-09] MEDS: IBUPROFEN 400 MG TABLET (FP) PO PRN (06:40)
[2021-01-09] MEDS: SERTRALINE HCL 50 MG TABLET (FP) PO SCH (10:11)
[2021-01-09] MEDS: ASPIRIN COATED 81 MG TABLET.EC PO SCH (10:12)
[2021-01-09] MEDS: NICOTINE 14 MG/24 HOURS TOPICAL PATCH TD SCH (10:12)
[2021-01-09] MEDS: PRENATAL VITAMINS W/ FOLIC ACID TABLET (FP) PO SCH (10:12)
[2021-01-09] MEDS: LISINOPRIL 10 MG TABLET PO SCH ×2 (10:12→22:55)
[2021-01-09] MEDS: COLLOIDAL OATMEAL 1 BAR EACH TP PRN (10:14)
[2021-01-09] MEDS: VITAMINS A AND D TOPICAL OINTMENT 60 GM TUBE TP SCH ×3 (14:02→23:26)
[2021-01-09] MEDS: BENZOCAINE 20 % GEL TUBE MM PRN ×2 (14:02→22:54)
[2021-01-09] MEDS: traZODone HCL 100 MG TABLET (FP) PO SCH (22:54)
[2021-01-09] MEDS: THIAMINE HCL 100 MG TABLET (FP) PO SCH (22:55)
[2021-01-09] MEDS: MELATONIN 5 MG TABLETS PO SCH (22:55)
[2021-01-10] MEDS: IBUPROFEN 400 MG TABLET (FP) PO PRN (03:27)
[2021-01-10] MEDS: chlordiazePOXIDE HCL 10 MG CAPSULE PO SCH ×2 (07:09→17:50)
[2021-01-10] MEDS: metFORMIN HCL 500 MG TABLET (FP) PO SCH ×2 (07:09→17:50)
[2021-01-10] MEDS: VITAMINS A AND D TOPICAL OINTMENT 60 GM TUBE TP SCH ×3 (07:10→17:50)
[2021-01-10] MEDS ORDERED: INSULIN (NOVOLOG) ASPART 100 UNITS/ML 10ML VIAL ONE (07:54)
[2021-01-10] MEDS: ASPIRIN COATED 81 MG TABLET.EC PO SCH (10:53)
[2021-01-10] MEDS: SERTRALINE HCL 50 MG TABLET (FP) PO SCH (10:53)
[2021-01-10] MEDS: LISINOPRIL 10 MG TABLET PO SCH ×2 (10:53→22:27)
[2021-01-10] MEDS: NICOTINE 14 MG/24 HOURS TOPICAL PATCH TD SCH (10:53)
[2021-01-10] MEDS: BENZOCAINE 20 % GEL TUBE MM PRN (10:53)
[2021-01-10] MEDS: PRENATAL VITAMINS W/ FOLIC ACID TABLET (FP) PO SCH (10:53)
[2021-01-10 12:15] LABS: BLOOD UREA NITROGEN 14.9 mg/dL (7-18); CALCIUM 9.1 mg/dL (8.5-10.1)
[2021-01-10 12:19] LABS: CREATININE 1.2 mg/dL (0.55-1.3)
[2021-01-10] MEDS: MELATONIN 5 MG TABLETS PO SCH (22:27)
[2021-01-10] MEDS: traZODone HCL 100 MG TABLET (FP) PO SCH (22:27)
[2021-01-10] MEDS: THIAMINE HCL 100 MG TABLET (FP) PO SCH (22:27)
[2021-01-11] MEDS: VITAMINS A AND D TOPICAL OINTMENT 60 GM TUBE TP SCH ×3 (00:11→06:47)
[2021-01-11] MEDS ORDERED: chlordiazePOXIDE HCL 10 MG CAPSULE PO ONE (05:00)
[2021-01-11 06:04] VITALS: TEMP 97
[2021-01-11] MEDS: metFORMIN HCL 500 MG TABLET (FP) PO SCH (07:03)
[2021-01-11 09:10] VITALS: BP 121/56; PULSE 68
[2021-01-11] MEDS: PRENATAL VITAMINS W/ FOLIC ACID TABLET (FP) PO SCH (09:17)
[2021-01-11] MEDS: LISINOPRIL 10 MG TABLET PO SCH (09:17)
[2021-01-11] MEDS: SERTRALINE HCL 50 MG TABLET (FP) PO SCH (09:17)
[2021-01-11] MEDS: ASPIRIN COATED 81 MG TABLET.EC PO SCH (09:17)
[2021-01-11] MEDS: NICOTINE 14 MG/24 HOURS TOPICAL PATCH TD SCH (09:19)
== END 2021-01-11 09:38 | disposition home or self-care (01) | DRG 774 ==
LOC: YASAS 21:10 → Y6N 01-07 09:12
PROVIDERS: ADMIT Allergy & Immunology; ATTEND Allergy & Immunology
PROC: HZ2ZZZZ Detoxification Services for Substance Abuse Treatment (ICD-10-PCS; principal; 2021-01-07)
DX: F10.230 Alcohol dependence with withdrawal, uncomplicated (principal); F14.20 Cocaine dependence, uncomplicated; F17.210 Nicotine dependence, cigarettes, uncomplicated; F32.9 Major depressive disorder, single episode, unspecified; F43.10 Post-traumatic stress disorder, unspecified; I10 Essential (primary) hypertension; J44.9 Chronic obstructive pulmonary disease, unspecified; E11.9 Type 2 diabetes mellitus without complications; Z79.84 Long term (current) use of oral hypoglycemic drugs; Z86.19 Personal history of other infectious and parasitic diseases
CPT/HCPCS: 36415; 80048; 80053; 82962; 85027; 86593; 86780; 93005; 93010; C9803; U0003

== ENCOUNTER 2021-05-22 21:20 | Inpatient (IN) | payer OTHER ==
[2021-05-22] MEDS ORDERED: NICOTINE POLACRILEX 2 MG GUM BUC PRN (23:05)
[2021-05-22] MEDS ORDERED: MAGNESIUM HYDROX 2400MG/30ML ORAL SUSPENSION 30 ML CUP PO PRN (23:05)
[2021-05-22] MEDS ORDERED: ACETAMINOPHEN 325 MG TABLET (FP) PO PRN ×2 (23:05)
[2021-05-22] MEDS ORDERED: MAGNESIUM CITRATE 300 ML BOTTLE PO PRN (23:05)
[2021-05-22] MEDS ORDERED: METHOCARBAMOL 500 MG TABLET PO PRN (23:05)
[2021-05-22] MEDS ORDERED: hydrOXYzine PAMOATE 25 MG CAPSULE (FP) PO PRN (23:05)
[2021-05-22] MEDS ORDERED: BISMUTH SUBSALICYLATE 524 MG/30 ML PO PRN (23:05)
[2021-05-22] MEDS ORDERED: IBUPROFEN 400 MG TABLET (FP) PO PRN (23:05)
[2021-05-22] MEDS ORDERED: MAG HYDROX/AL HYDROX/SIMETH 30 ML UNIT-DOSE CUP PO PRN (23:05)
[2021-05-22] MEDS ORDERED: MENTHOL/PHENOL 1 EACH UD MM PRN (23:05)
[2021-05-22] MEDS ORDERED: ONDANSETRON *ODT* 4 MG TABLET SL PRN (23:05)
[2021-05-22] MEDS ORDERED: COLLOIDAL OATMEAL 1 BAR EACH TP PRN (23:35)
[2021-05-23] MEDS: MELATONIN 5 MG TABLETS PO SCH ×2 (02:06→22:15)
[2021-05-23] MEDS ORDERED: INSULIN SLIDING SCALE (NOVOLOG) 1 VIAL SQ ONE (07:54)
[2021-05-23] MEDS ORDERED: LISINOPRIL 10 MG TABLET PO ONE (08:00)
[2021-05-23] MEDS: metFORMIN HCL 500 MG TABLET (FP) PO SCH (08:05)
[2021-05-23] MEDS: SERTRALINE HCL 50 MG TABLET (FP) PO SCH (10:36)
[2021-05-23] MEDS: LISINOPRIL 10 MG TABLET PO SCH (10:36)
[2021-05-23] MEDS: TAMSULOSIN HCL 0.4 MG CAP PO SCH (10:36)
[2021-05-23] MEDS: PRENATAL VITAMINS W/ FOLIC ACID TABLET (FP) PO SCH (10:36)
[2021-05-23] MEDS: ASPIRIN COATED 81 MG TABLET.EC PO SCH (10:36)
[2021-05-23] MEDS ORDERED: diazePAM 5 MG TABLET PO PRN (10:40)
[2021-05-23 10:43] LABS: HEMOGLOBIN 14.2 GM/dL (11.7-16.9); MCH 33.9 pg (25.7-33.7); MCHC 32.9 g/dl (32.0-35.9); MEAN PLT VOLUME 9.9 fl (7.5-11.1); PLATELET COUNT 174 10^3/uL (134-434); RBC 4.18 M/mm3 (4.00-5.60); RDW 14.6 % (11.9-15.9); WHITE BLOOD COUNT 4.4 K/mm3 (4.0-10.0)
[2021-05-23 11:35] LABS: CALCIUM 8.3 mg/dL (8.5-10.1)
[2021-05-23 11:36] LABS: ALBUMIN 3.3 g/dl (3.4-5.0)
[2021-05-23 11:39] LABS: CREATININE 0.9 mg/dL (0.55-1.3)
[2021-05-23 11:40] LABS: TOT PROT 6.1 g/dl (6.4-8.2)
[2021-05-23 11:59] LABS: BILIRUBIN,TOTAL 0.1 mg/dL (0.2-1)
[2021-05-23] MEDS: diazePAM 5 MG TABLET PO SCH ×3 (12:22→22:16)
[2021-05-23] MEDS: VITAMINS A AND D TOPICAL OINTMENT 60 GM TUBE TP SCH ×3 (13:52→23:45)
[2021-05-23] MEDS: THIAMINE HCL 100 MG TABLET (FP) PO SCH (22:15)
[2021-05-23] MEDS: traZODone HCL 100 MG TABLET (FP) PO SCH (22:15)
[2021-05-23] MEDS: ATORVASTATIN CA 10 MG TABLET (FP) PO SCH (22:15)
[2021-05-23] MEDS ORDERED: traZODone HCL 150 MG TABLET PO ONE (23:00)
[2021-05-24] MEDS: diazePAM 5 MG TABLET PO SCH ×4 (07:21→22:34)
[2021-05-24] MEDS: VITAMINS A AND D TOPICAL OINTMENT 60 GM TUBE TP SCH ×4 (07:22→23:42)
[2021-05-24] MEDS: metFORMIN HCL 500 MG TABLET (FP) PO SCH (07:22)
[2021-05-24] MEDS: PRENATAL VITAMINS W/ FOLIC ACID TABLET (FP) PO SCH (10:27)
[2021-05-24] MEDS: SERTRALINE HCL 50 MG TABLET (FP) PO SCH (10:27)
[2021-05-24] MEDS: TAMSULOSIN HCL 0.4 MG CAP PO SCH (10:27)
[2021-05-24] MEDS: LISINOPRIL 10 MG TABLET PO SCH (10:27)
[2021-05-24] MEDS: ASPIRIN COATED 81 MG TABLET.EC PO SCH (10:27)
[2021-05-24] MEDS: MELATONIN 5 MG TABLETS PO SCH (22:33)
[2021-05-24] MEDS: traZODone HCL 100 MG TABLET (FP) PO SCH (22:33)
[2021-05-24] MEDS: ATORVASTATIN CA 10 MG TABLET (FP) PO SCH (22:33)
[2021-05-24] MEDS: THIAMINE HCL 100 MG TABLET (FP) PO SCH (22:33)
[2021-05-25] MEDS: diazePAM 5 MG TABLET PO SCH ×3 (06:08→22:05)
[2021-05-25] MEDS: metFORMIN HCL 500 MG TABLET (FP) PO SCH (06:08)
[2021-05-25] MEDS: VITAMINS A AND D TOPICAL OINTMENT 60 GM TUBE TP SCH ×4 (06:58→23:01)
[2021-05-25] MEDS: ASPIRIN COATED 81 MG TABLET.EC PO SCH (10:37)
[2021-05-25] MEDS: SERTRALINE HCL 50 MG TABLET (FP) PO SCH (10:37)
[2021-05-25] MEDS: PRENATAL VITAMINS W/ FOLIC ACID TABLET (FP) PO SCH (10:37)
[2021-05-25] MEDS: TAMSULOSIN HCL 0.4 MG CAP PO SCH (10:37)
[2021-05-25] MEDS: LISINOPRIL 10 MG TABLET PO SCH (10:37)
[2021-05-25] MEDS ORDERED: MASKS NR ONE (20:29)
[2021-05-25] MEDS: MELATONIN 5 MG TABLETS PO SCH (22:04)
[2021-05-25] MEDS: traZODone HCL 100 MG TABLET (FP) PO SCH (22:05)
[2021-05-25] MEDS: ATORVASTATIN CA 10 MG TABLET (FP) PO SCH (22:05)
[2021-05-25] MEDS: THIAMINE HCL 100 MG TABLET (FP) PO SCH (22:05)
[2021-05-26] MEDS: VITAMINS A AND D TOPICAL OINTMENT 60 GM TUBE TP SCH (05:41)
[2021-05-26] MEDS ORDERED: diazePAM 5 MG TABLET PO SCH (06:00)
[2021-05-26] MEDS: metFORMIN HCL 500 MG TABLET (FP) PO SCH (08:11)
[2021-05-26 08:42] VITALS: BP 132/69; PULSE 64; TEMP 96.8
[2021-05-26] MEDS: LISINOPRIL 10 MG TABLET PO SCH (09:57)
[2021-05-26] MEDS: ASPIRIN COATED 81 MG TABLET.EC PO SCH (09:57)
[2021-05-26] MEDS: TAMSULOSIN HCL 0.4 MG CAP PO SCH (09:57)
[2021-05-26] MEDS: PRENATAL VITAMINS W/ FOLIC ACID TABLET (FP) PO SCH (09:57)
[2021-05-26] MEDS: SERTRALINE HCL 50 MG TABLET (FP) PO SCH (09:57)
[2021-05-27] MEDS ORDERED: diazePAM 5 MG TABLET PO ONE (06:00)
== END 2021-05-26 10:17 | disposition home or self-care (01) | DRG 774 ==
LOC: YASAS 21:20 → Y3N 05-23 00:07
PROVIDERS: ADMIT Allergy & Immunology; ATTEND Allergy & Immunology
PROC: HZ2ZZZZ Detoxification Services for Substance Abuse Treatment (ICD-10-PCS; principal; 2021-05-23)
DX: F10.230 Alcohol dependence with withdrawal, uncomplicated (principal); F10.220 Alcohol dependence with intoxication, uncomplicated; F10.280 Alcohol dependence with alcohol-induced anxiety disorder; F14.20 Cocaine dependence, uncomplicated; F12.20 Cannabis dependence, uncomplicated; F17.210 Nicotine dependence, cigarettes, uncomplicated; F43.10 Post-traumatic stress disorder, unspecified; F19.282 Other psychoactive substance dependence with psychoactive substance-induced sleep disorder; F32.9 Major depressive disorder, single episode, unspecified; I10 Essential (primary) hypertension; J44.9 Chronic obstructive pulmonary disease, unspecified; E11.9 Type 2 diabetes mellitus without complications; G47.30 Sleep apnea, unspecified; R00.0 Tachycardia, unspecified; Z86.19 Personal history of other infectious and parasitic diseases; Z79.84 Long term (current) use of oral hypoglycemic drugs; Z91.14 Patient's other noncompliance with medication regimen
CPT/HCPCS: 36415; 80053; 82962; 85027; 86593; 86780; C9803; U0003; U0005

== ENCOUNTER 2022-11-28 16:18 | Inpatient (IN) | payer OTHER ==
[2022-11-28 17:19] VITALS: BMI 27.4
[2022-11-28] MEDS ORDERED: BISMUTH SUBSALICYLATE 524 MG/30 ML PO PRN (17:45)
[2022-11-28] MEDS ORDERED: ONDANSETRON *ODT* 4 MG TABLET SL PRN (17:45)
[2022-11-28] MEDS ORDERED: MAG HYDROX/AL HYDROX/SIMETH 30 ML UNIT-DOSE CUP PO PRN (17:45)
[2022-11-28] MEDS ORDERED: MAGNESIUM HYDROX 2400MG/30ML ORAL SUSPENSION 30 ML CUP PO PRN (17:45)
[2022-11-28] MEDS ORDERED: POLYETHYLENE GLYCOL (HEALTHYLAX) 3350 17 GM PACKET PO PRN (17:45)
[2022-11-28] MEDS ORDERED: IBUPROFEN 600 MG TABLET (FP) PO PRN (17:45)
[2022-11-28] MEDS ORDERED: IBUPROFEN 400 MG TABLET (FP) PO PRN (17:45)
[2022-11-28] MEDS ORDERED: NALOXONE HCL (KLOXXADO) 8 MG SPRAY NS PRN (17:45)
[2022-11-28] MEDS ORDERED: NICOTINE POLACRILEX 4 MG GUM BUC PRN (17:45)
[2022-11-28] MEDS ORDERED: DICYCLOMINE HCL 10 MG CAPSULE PO PRN (17:45)
[2022-11-28] MEDS ORDERED: BENZOCAINE/MENTHOL (CHLORASEPTIC ) LOZENGE MM PRN (17:45)
[2022-11-28] MEDS ORDERED: LOPERAMIDE HCL 2 MG CAPSULE PO PRN (17:45)
[2022-11-28] MEDS ORDERED: guaiFENesin 200 MG/10 ML 10 ML UNIT-DOSE CUPS PO PRN (17:45)
[2022-11-28] MEDS ORDERED: ACETAMINOPHEN 325 MG TABLET (FP) PO PRN ×2 (17:45)
[2022-11-28] MEDS ORDERED: P-EPHED 60MG/TRIPROLIDI 2.5MG TABLET PO PRN (17:45)
[2022-11-28] MEDS ORDERED: VITAMINS A AND D TOPICAL OINTMENT 60 GM TUBE TP PRN (17:48)
[2022-11-28] MEDS ORDERED: COLLOIDAL OATMEAL 1 BAR EACH TP PRN (17:50)
[2022-11-28] MEDS: hydrOXYzine PAMOATE 25 MG CAPSULE (FP) PO PRN (18:52)
[2022-11-28] MEDS ORDERED: LISINOPRIL 5 MG TABLET PO ONE (20:27)
[2022-11-28] MEDS: ASPIRIN COATED 81 MG TABLET.EC PO SCH (20:42)
[2022-11-28] MEDS: THIAMINE HCL 100 MG TABLET (FP) PO SCH (22:34)
[2022-11-28] MEDS: MELATONIN 5 MG TABLETS PO SCH (22:34)
[2022-11-28] MEDS: ATORVASTATIN CA 10 MG TABLET (FP) PO SCH (22:35)
[2022-11-28] MEDS: BACITRACIN 0.9 GM PACKET TP SCH (22:36)
[2022-11-29] MEDS: metFORMIN HCL 500 MG TABLET (FP) PO SCH ×2 (06:17→17:05)
[2022-11-29] MEDS ORDERED: chlordiazePOXIDE HCL 25 MG CAPSULE PO PRN (09:31)
[2022-11-29] MEDS: NICOTINE 21 MG/24 HOURS TOPICAL PATCH TD SCH (10:29)
[2022-11-29] MEDS: BACITRACIN 0.9 GM PACKET TP SCH ×2 (10:30→22:21)
[2022-11-29] MEDS: chlordiazePOXIDE HCL 25 MG CAPSULE PO SCH ×3 (10:30→22:22)
[2022-11-29] MEDS: PRENATAL VITAMINS W/ FOLIC ACID TABLET (FP) PO SCH (10:30)
[2022-11-29] MEDS: SERTRALINE HCL 50 MG TABLET (FP) PO SCH (10:30)
[2022-11-29] MEDS: ASPIRIN COATED 81 MG TABLET.EC PO SCH (10:30)
[2022-11-29 12:04] LABS: HEMATOCRIT 40.2 % (35.4-49); HEMOGLOBIN 13.1 GM/dL (11.7-16.9); MCH 33.2 pg (25.7-33.7); MCHC 32.7 g/dl (32.0-35.9); MEAN CELL VOLUME 101.7 fl (80-96); MEAN PLT VOLUME 10.1 fl (7.5-11.1); PLATELET COUNT 266 10^3/uL (134-434); RBC 3.95 M/mm3 (4.00-5.60); RDW 13.6 % (11.9-15.9); WHITE BLOOD COUNT 5.9 K/mm3 (4.0-10.0)
[2022-11-29 12:07] LABS: CALCIUM 8.7 mg/dL (8.5-10.1)
[2022-11-29 12:09] LABS: ALBUMIN 2.6 g/dl (3.4-5.0); BLOOD UREA NITROGEN 15.6 mg/dL (7-18)
[2022-11-29 12:13] LABS: BILIRUBIN,TOTAL 0.8 mg/dL (0.2-1)
[2022-11-29 12:15] LABS: TOT PROT 5.6 g/dl (6.4-8.2)
[2022-11-29] MEDS: hydrOXYzine PAMOATE 25 MG CAPSULE (FP) PO PRN (17:05)
[2022-11-29] MEDS: THIAMINE HCL 100 MG TABLET (FP) PO SCH (22:22)
[2022-11-29] MEDS: ATORVASTATIN CA 10 MG TABLET (FP) PO SCH (22:22)
[2022-11-29] MEDS: MELATONIN 5 MG TABLETS PO SCH (22:22)
[2022-11-29] MEDS: traZODone HCL 50 MG TABLET (FP) PO SCH (22:22)
[2022-11-30] MEDS: chlordiazePOXIDE HCL 10 MG CAPSULE PO SCH ×4 (05:31→22:30)
[2022-11-30] MEDS: metFORMIN HCL 500 MG TABLET (FP) PO SCH ×2 (06:09→17:04)
[2022-11-30] MEDS: NICOTINE 21 MG/24 HOURS TOPICAL PATCH TD SCH (10:17)
[2022-11-30] MEDS: SERTRALINE HCL 50 MG TABLET (FP) PO SCH (10:18)
[2022-11-30] MEDS: BACITRACIN 0.9 GM PACKET TP SCH ×2 (10:18→22:31)
[2022-11-30] MEDS: ASPIRIN COATED 81 MG TABLET.EC PO SCH (10:18)
[2022-11-30] MEDS: PRENATAL VITAMINS W/ FOLIC ACID TABLET (FP) PO SCH (10:18)
[2022-11-30 17:40] VITALS: RESP 18
[2022-11-30] MEDS: hydrOXYzine PAMOATE 25 MG CAPSULE (FP) PO PRN (18:48)
[2022-11-30] MEDS ORDERED: cloNIDine HCL 0.1 MG TABLET PO ONE (21:43)
[2022-11-30] MEDS: MELATONIN 5 MG TABLETS PO SCH (22:29)
[2022-11-30] MEDS: ATORVASTATIN CA 10 MG TABLET (FP) PO SCH (22:29)
[2022-11-30] MEDS: traZODone HCL 50 MG TABLET (FP) PO SCH (22:32)
[2022-11-30] MEDS: THIAMINE HCL 100 MG TABLET (FP) PO SCH (22:32)
[2022-12-01] MEDS: chlordiazePOXIDE HCL 10 MG CAPSULE PO SCH ×2 (05:41→17:23)
[2022-12-01] MEDS: metFORMIN HCL 500 MG TABLET (FP) PO SCH ×2 (06:19→17:23)
[2022-12-01] MEDS: PRENATAL VITAMINS W/ FOLIC ACID TABLET (FP) PO SCH (10:11)
[2022-12-01] MEDS: BACITRACIN 0.9 GM PACKET TP SCH ×2 (10:12→22:12)
[2022-12-01] MEDS: NICOTINE 21 MG/24 HOURS TOPICAL PATCH TD SCH (10:12)
[2022-12-01] MEDS: SERTRALINE HCL 50 MG TABLET (FP) PO SCH (10:12)
[2022-12-01] MEDS: ASPIRIN COATED 81 MG TABLET.EC PO SCH (10:12)
[2022-12-01] MEDS: hydrOXYzine PAMOATE 25 MG CAPSULE (FP) PO PRN (10:12)
[2022-12-01] MEDS: THIAMINE HCL 100 MG TABLET (FP) PO SCH (22:12)
[2022-12-01] MEDS: ATORVASTATIN CA 10 MG TABLET (FP) PO SCH (22:12)
[2022-12-01] MEDS: traZODone HCL 50 MG TABLET (FP) PO SCH (22:12)
[2022-12-01] MEDS: MELATONIN 5 MG TABLETS PO SCH (22:13)
[2022-12-02] MEDS ORDERED: chlordiazePOXIDE HCL 10 MG CAPSULE PO PRN
[2022-12-02] MEDS ORDERED: chlordiazePOXIDE HCL 10 MG CAPSULE PO ONE (05:00)
[2022-12-02] MEDS: metFORMIN HCL 500 MG TABLET (FP) PO SCH (06:01)
[2022-12-02] MEDS: SERTRALINE HCL 50 MG TABLET (FP) PO SCH (09:02)
[2022-12-02] MEDS: ASPIRIN COATED 81 MG TABLET.EC PO SCH (09:02)
[2022-12-02] MEDS: hydrOXYzine PAMOATE 25 MG CAPSULE (FP) PO PRN (09:02)
[2022-12-02] MEDS: PRENATAL VITAMINS W/ FOLIC ACID TABLET (FP) PO SCH (09:02)
[2022-12-02] MEDS: NICOTINE 21 MG/24 HOURS TOPICAL PATCH TD SCH (09:03)
[2022-12-02] MEDS: BACITRACIN 0.9 GM PACKET TP SCH (09:03)
[2022-12-02 09:18] VITALS: BP 150/92; PULSE 79; TEMP 98.3
[2022-12-02] MEDS ORDERED: LISINOPRIL 10 MG TABLET PO SCH (10:00)
== END 2022-12-02 10:51 | disposition other institution (70) | DRG 774 ==
LOC: YASAS 16:18 → Y6N 18:35
PROVIDERS: ADMIT Allergy & Immunology; ATTEND Surgery
PROC: HZ2ZZZZ Detoxification Services for Substance Abuse Treatment (ICD-10-PCS; principal; 2022-11-28)
DX: F10.230 Alcohol dependence with withdrawal, uncomplicated (principal); F14.20 Cocaine dependence, uncomplicated; F12.20 Cannabis dependence, uncomplicated; F17.210 Nicotine dependence, cigarettes, uncomplicated; F19.282 Other psychoactive substance dependence with psychoactive substance-induced sleep disorder; F19.24 Other psychoactive substance dependence with psychoactive substance-induced mood disorder; F43.10 Post-traumatic stress disorder, unspecified; F32.A Depression, unspecified; I10 Essential (primary) hypertension; E78.5 Hyperlipidemia, unspecified; E11.9 Type 2 diabetes mellitus without complications; Z79.84 Long term (current) use of oral hypoglycemic drugs; J44.9 Chronic obstructive pulmonary disease, unspecified; G47.30 Sleep apnea, unspecified; N40.0 Benign prostatic hyperplasia without lower urinary tract symptoms; Z86.19 Personal history of other infectious and parasitic diseases
CPT/HCPCS: 36415; 80053; 82962; 85027; 87811; C9803-CS; U0003; U0005

== ENCOUNTER 2022-12-02 10:56 | Inpatient (IN) | payer OTHER ==
[2022-12-02] MEDS ORDERED: POLYETHYLENE GLYCOL (HEALTHYLAX) 3350 17 GM PACKET PO PRN (12:39)
[2022-12-02] MEDS ORDERED: LOPERAMIDE HCL 2 MG CAPSULE PO PRN (12:39)
[2022-12-02] MEDS ORDERED: MAGNESIUM HYDROX 2400MG/30ML ORAL SUSPENSION 30 ML CUP PO PRN (12:39)
[2022-12-02] MEDS ORDERED: NICOTINE 10 MG CARTRIDGE (INHALER) IH PRN (12:39)
[2022-12-02] MEDS ORDERED: P-EPHED 60MG/TRIPROLIDI 2.5MG TABLET PO PRN (12:39)
[2022-12-02] MEDS ORDERED: BENZOCAINE/MENTHOL (CHLORASEPTIC ) LOZENGE MM PRN (12:39)
[2022-12-02] MEDS ORDERED: guaiFENesin 200 MG/10 ML 10 ML UNIT-DOSE CUPS PO PRN (12:39)
[2022-12-02] MEDS ORDERED: MAG HYDROX/AL HYDROX/SIMETH 30 ML UNIT-DOSE CUP PO PRN (12:39)
[2022-12-02] MEDS ORDERED: NICOTINE POLACRILEX 4 MG GUM BUC PRN (12:39)
[2022-12-02] MEDS ORDERED: COLLOIDAL OATMEAL 1 BAR EACH TP PRN (12:45)
[2022-12-02] MEDS ORDERED: INSULIN (NOVOLOG) ASPART 100 UNITS/ML 10ML VIAL ONE (16:44)
[2022-12-02] MEDS: metFORMIN HCL 500 MG TABLET (FP) PO SCH (17:31)
[2022-12-02] MEDS: ACETAMINOPHEN 325 MG TABLET (FP) PO PRN (19:11)
[2022-12-02] MEDS: MELATONIN 5 MG TABLETS PO SCH (21:32)
[2022-12-02] MEDS: ATORVASTATIN CA 10 MG TABLET (FP) PO SCH (21:38)
[2022-12-02] MEDS: THIAMINE HCL 100 MG TABLET (FP) PO SCH (21:39)
[2022-12-02] MEDS ORDERED: metFORMIN HCL 500 MG TABLET (FP) PO SCH (22:00)
[2022-12-02] MEDS: traZODone HCL 50 MG TABLET (FP) PO SCH (22:00)
[2022-12-02] MEDS ORDERED: traZODone HCL 150 MG TABLET PO SCH (22:00)
[2022-12-03] MEDS: metFORMIN HCL 500 MG TABLET (FP) PO SCH ×2 (06:27→16:32)
[2022-12-03] MEDS ORDERED: TAMSULOSIN HCL 0.4 MG CAP PO SCH (08:30)
[2022-12-03] MEDS: SERTRALINE HCL 50 MG TABLET (FP) PO SCH (09:32)
[2022-12-03] MEDS: PRENATAL VITAMINS W/ FOLIC ACID TABLET (FP) PO SCH (09:32)
[2022-12-03] MEDS: LISINOPRIL 10 MG TABLET PO SCH (09:33)
[2022-12-03] MEDS: ASPIRIN COATED 81 MG TABLET.EC PO SCH (09:33)
[2022-12-03 21:06] LABS: HIV INTERPRETATION NEGATIVE (NEGATIVE)
[2022-12-03] MEDS: THIAMINE HCL 100 MG TABLET (FP) PO SCH (21:27)
[2022-12-03] MEDS: traZODone HCL 50 MG TABLET (FP) PO SCH (21:27)
[2022-12-03] MEDS: ATORVASTATIN CA 10 MG TABLET (FP) PO SCH (21:28)
[2022-12-03] MEDS: MELATONIN 5 MG TABLETS PO SCH (21:28)
[2022-12-04] MEDS: metFORMIN HCL 500 MG TABLET (FP) PO SCH ×2 (06:19→16:26)
[2022-12-04] MEDS: PRENATAL VITAMINS W/ FOLIC ACID TABLET (FP) PO SCH (09:40)
[2022-12-04] MEDS: SERTRALINE HCL 50 MG TABLET (FP) PO SCH (09:40)
[2022-12-04] MEDS: LISINOPRIL 10 MG TABLET PO SCH (09:40)
[2022-12-04] MEDS: ASPIRIN COATED 81 MG TABLET.EC PO SCH (09:40)
[2022-12-04] MEDS: hydrOXYzine PAMOATE 25 MG CAPSULE (FP) PO PRN (13:41)
[2022-12-04] MEDS: ATORVASTATIN CA 10 MG TABLET (FP) PO SCH (21:28)
[2022-12-04] MEDS: MELATONIN 5 MG TABLETS PO SCH (21:28)
[2022-12-04] MEDS: traZODone HCL 50 MG TABLET (FP) PO SCH (21:28)
[2022-12-04] MEDS: THIAMINE HCL 100 MG TABLET (FP) PO SCH (21:28)
[2022-12-05] MEDS: metFORMIN HCL 500 MG TABLET (FP) PO SCH ×2 (06:23→16:48)
[2022-12-05] MEDS: SERTRALINE HCL 50 MG TABLET (FP) PO SCH (09:43)
[2022-12-05] MEDS: ASPIRIN COATED 81 MG TABLET.EC PO SCH (09:43)
[2022-12-05] MEDS: PRENATAL VITAMINS W/ FOLIC ACID TABLET (FP) PO SCH (09:43)
[2022-12-05] MEDS: LISINOPRIL 10 MG TABLET PO SCH (09:43)
[2022-12-05] MEDS: VITAMINS A AND D TOPICAL OINTMENT 60 GM TUBE TP SCH ×2 (11:54→18:00)
[2022-12-05] MEDS: THIAMINE HCL 100 MG TABLET (FP) PO SCH (21:24)
[2022-12-05] MEDS: ATORVASTATIN CA 10 MG TABLET (FP) PO SCH (21:24)
[2022-12-05] MEDS: traZODone HCL 50 MG TABLET (FP) PO SCH (21:24)
[2022-12-05] MEDS: MELATONIN 5 MG TABLETS PO SCH (21:24)
[2022-12-06] MEDS: VITAMINS A AND D TOPICAL OINTMENT 60 GM TUBE TP SCH ×4 (00:36→18:00)
[2022-12-06] MEDS: hydrOXYzine PAMOATE 25 MG CAPSULE (FP) PO PRN ×2 (04:29→21:34)
[2022-12-06] MEDS: metFORMIN HCL 500 MG TABLET (FP) PO SCH ×2 (06:45→16:34)
[2022-12-06] MEDS: PRENATAL VITAMINS W/ FOLIC ACID TABLET (FP) PO SCH (09:57)
[2022-12-06] MEDS: ASPIRIN COATED 81 MG TABLET.EC PO SCH (09:57)
[2022-12-06] MEDS: LISINOPRIL 10 MG TABLET PO SCH (09:57)
[2022-12-06] MEDS: SERTRALINE HCL 50 MG TABLET (FP) PO SCH (09:57)
[2022-12-06] MEDS: THIAMINE HCL 100 MG TABLET (FP) PO SCH (21:34)
[2022-12-06] MEDS: ATORVASTATIN CA 10 MG TABLET (FP) PO SCH (21:34)
[2022-12-06] MEDS: traZODone HCL 50 MG TABLET (FP) PO SCH (21:34)
[2022-12-06] MEDS: MELATONIN 5 MG TABLETS PO SCH (21:34)
[2022-12-07] MEDS: VITAMINS A AND D TOPICAL OINTMENT 60 GM TUBE TP SCH ×4 (06:38→18:24)
[2022-12-07] MEDS: metFORMIN HCL 500 MG TABLET (FP) PO SCH ×2 (06:48→16:49)
[2022-12-07] MEDS: SERTRALINE HCL 50 MG TABLET (FP) PO SCH (09:50)
[2022-12-07] MEDS: LISINOPRIL 10 MG TABLET PO SCH (09:50)
[2022-12-07] MEDS: PRENATAL VITAMINS W/ FOLIC ACID TABLET (FP) PO SCH (09:50)
[2022-12-07] MEDS: ASPIRIN COATED 81 MG TABLET.EC PO SCH (09:50)
[2022-12-07] MEDS: MELATONIN 5 MG TABLETS PO SCH (21:35)
[2022-12-07] MEDS: THIAMINE HCL 100 MG TABLET (FP) PO SCH (21:35)
[2022-12-07] MEDS: traZODone HCL 50 MG TABLET (FP) PO SCH (21:35)
[2022-12-07] MEDS: ATORVASTATIN CA 10 MG TABLET (FP) PO SCH (21:35)
[2022-12-07] MEDS: hydrOXYzine PAMOATE 25 MG CAPSULE (FP) PO PRN (21:36)
[2022-12-08] MEDS: VITAMINS A AND D TOPICAL OINTMENT 60 GM TUBE TP SCH ×4 (01:00→17:56)
[2022-12-08] MEDS: metFORMIN HCL 500 MG TABLET (FP) PO SCH ×2 (06:57→16:48)
[2022-12-08] MEDS: SERTRALINE HCL 50 MG TABLET (FP) PO SCH (09:49)
[2022-12-08] MEDS: PRENATAL VITAMINS W/ FOLIC ACID TABLET (FP) PO SCH (09:49)
[2022-12-08] MEDS: ASPIRIN COATED 81 MG TABLET.EC PO SCH (09:50)
[2022-12-08] MEDS: LISINOPRIL 10 MG TABLET PO SCH (09:50)
[2022-12-08] MEDS: THIAMINE HCL 100 MG TABLET (FP) PO SCH (21:34)
[2022-12-08] MEDS: traZODone HCL 50 MG TABLET (FP) PO SCH (21:34)
[2022-12-08] MEDS: MELATONIN 5 MG TABLETS PO SCH (21:34)
[2022-12-08] MEDS: ATORVASTATIN CA 10 MG TABLET (FP) PO SCH (21:34)
[2022-12-08] MEDS: hydrOXYzine PAMOATE 25 MG CAPSULE (FP) PO PRN (21:35)
[2022-12-09] MEDS: VITAMINS A AND D TOPICAL OINTMENT 60 GM TUBE TP SCH ×4 (00:40→19:01)
[2022-12-09] MEDS: metFORMIN HCL 500 MG TABLET (FP) PO SCH ×2 (07:00→16:46)
[2022-12-09] MEDS: PRENATAL VITAMINS W/ FOLIC ACID TABLET (FP) PO SCH (09:45)
[2022-12-09] MEDS: SERTRALINE HCL 50 MG TABLET (FP) PO SCH (09:45)
[2022-12-09] MEDS: ASPIRIN COATED 81 MG TABLET.EC PO SCH (09:46)
[2022-12-09] MEDS: LISINOPRIL 10 MG TABLET PO SCH (09:46)
[2022-12-09] MEDS ORDERED: INSULIN (NOVOLOG) ASPART 100 UNITS/ML 10ML VIAL ONE (16:43)
[2022-12-09] MEDS: ATORVASTATIN CA 10 MG TABLET (FP) PO SCH (21:31)
[2022-12-09] MEDS: hydrOXYzine PAMOATE 25 MG CAPSULE (FP) PO PRN (21:31)
[2022-12-09] MEDS: traZODone HCL 50 MG TABLET (FP) PO SCH (21:31)
[2022-12-09] MEDS: MELATONIN 5 MG TABLETS PO SCH (21:31)
[2022-12-09] MEDS: THIAMINE HCL 100 MG TABLET (FP) PO SCH (21:31)
[2022-12-10] MEDS: VITAMINS A AND D TOPICAL OINTMENT 60 GM TUBE TP SCH ×4 (00:50→18:08)
[2022-12-10] MEDS: metFORMIN HCL 500 MG TABLET (FP) PO SCH ×2 (06:55→16:46)
[2022-12-10] MEDS: ASPIRIN COATED 81 MG TABLET.EC PO SCH (09:46)
[2022-12-10] MEDS: SERTRALINE HCL 50 MG TABLET (FP) PO SCH (09:46)
[2022-12-10] MEDS: LISINOPRIL 10 MG TABLET PO SCH (09:46)
[2022-12-10] MEDS: PRENATAL VITAMINS W/ FOLIC ACID TABLET (FP) PO SCH (09:46)
[2022-12-10] MEDS: traZODone HCL 50 MG TABLET (FP) PO SCH (21:36)
[2022-12-10] MEDS: MELATONIN 5 MG TABLETS PO SCH (21:36)
[2022-12-10] MEDS: ATORVASTATIN CA 10 MG TABLET (FP) PO SCH (21:36)
[2022-12-10] MEDS: THIAMINE HCL 100 MG TABLET (FP) PO SCH (21:36)
[2022-12-10] MEDS: hydrOXYzine PAMOATE 25 MG CAPSULE (FP) PO PRN (21:37)
[2022-12-11] MEDS: VITAMINS A AND D TOPICAL OINTMENT 60 GM TUBE TP SCH ×2 (00:56→06:48)
[2022-12-11] MEDS: metFORMIN HCL 500 MG TABLET (FP) PO SCH ×2 (06:48→16:56)
[2022-12-11] MEDS: SERTRALINE HCL 50 MG TABLET (FP) PO SCH (09:34)
[2022-12-11] MEDS: LISINOPRIL 10 MG TABLET PO SCH (09:34)
[2022-12-11] MEDS: PRENATAL VITAMINS W/ FOLIC ACID TABLET (FP) PO SCH (09:34)
[2022-12-11] MEDS: ASPIRIN COATED 81 MG TABLET.EC PO SCH (09:34)
[2022-12-11] MEDS ORDERED: VITAMINS A AND D TOPICAL OINTMENT 60 GM TUBE TP PRN (09:36)
[2022-12-11] MEDS: ATORVASTATIN CA 10 MG TABLET (FP) PO SCH (21:39)
[2022-12-11] MEDS: traZODone HCL 50 MG TABLET (FP) PO SCH (21:39)
[2022-12-11] MEDS: THIAMINE HCL 100 MG TABLET (FP) PO SCH (21:39)
[2022-12-11] MEDS: MELATONIN 5 MG TABLETS PO SCH (21:39)
[2022-12-11] MEDS: hydrOXYzine PAMOATE 25 MG CAPSULE (FP) PO PRN (21:40)
[2022-12-12] MEDS: metFORMIN HCL 500 MG TABLET (FP) PO SCH (07:15)
[2022-12-12 08:17] VITALS: RESP 18
[2022-12-12] MEDS: SERTRALINE HCL 50 MG TABLET (FP) PO SCH (09:46)
[2022-12-12] MEDS: ASPIRIN COATED 81 MG TABLET.EC PO SCH (09:46)
[2022-12-12] MEDS: LISINOPRIL 10 MG TABLET PO SCH (09:46)
[2022-12-12] MEDS: PRENATAL VITAMINS W/ FOLIC ACID TABLET (FP) PO SCH (09:46)
[2022-12-12 10:07] VITALS: BP 144/72; PULSE 74; TEMP 98.3
[2022-12-12] MEDS: ACETAMINOPHEN 325 MG TABLET (FP) PO PRN (14:12)
== END 2022-12-12 16:05 | disposition home or self-care (01) | DRG 772 ==
LOC: YASAS 10:56 → Y5N 10:58
PROVIDERS: ADMIT Allergy & Immunology; ATTEND Psychiatry & Neurology Pain Medicine
PROC: HZ42ZZZ Group Counseling for Substance Abuse Treatment, Cognitive-Behavioral (ICD-10-PCS; principal; 2022-12-02)
DX: F10.20 Alcohol dependence, uncomplicated (principal); F14.20 Cocaine dependence, uncomplicated; F12.20 Cannabis dependence, uncomplicated; F17.210 Nicotine dependence, cigarettes, uncomplicated; F31.9 Bipolar disorder, unspecified; F43.10 Post-traumatic stress disorder, unspecified; U07.1 COVID-19; I10 Essential (primary) hypertension; E78.5 Hyperlipidemia, unspecified; E11.9 Type 2 diabetes mellitus without complications; Z79.84 Long term (current) use of oral hypoglycemic drugs; Z86.19 Personal history of other infectious and parasitic diseases
CPT/HCPCS: 36415; 82962; 86803; 87389; C9803-CS; U0003; U0005

== ENCOUNTER 2023-05-22 11:55 | Inpatient (IN) | payer OTHER ==
[2023-05-22 12:52] VITALS: BMI 28.6
[2023-05-22] MEDS ORDERED: BENZONATATE 200 MG CAPSULE PO PRN (13:27)
[2023-05-22] MEDS ORDERED: NICOTINE 10 MG CARTRIDGE (INHALER) IH PRN (13:27)
[2023-05-22] MEDS ORDERED: POLYETHYLENE GLYCOL (HEALTHYLAX) 3350 17 GM PACKET PO PRN (13:27)
[2023-05-22] MEDS ORDERED: IBUPROFEN 600 MG TABLET (FP) PO PRN (13:27)
[2023-05-22] MEDS ORDERED: chlordiazePOXIDE HCL 25 MG CAPSULE PO PRN (13:27)
[2023-05-22] MEDS ORDERED: NICOTINE POLACRILEX 2 MG GUM BUC PRN (13:27)
[2023-05-22] MEDS ORDERED: BISMUTH SUBSALICYLATE 524 MG/30 ML PO PRN (13:27)
[2023-05-22] MEDS ORDERED: MAGNESIUM HYDROX 2400MG/30ML ORAL SUSPENSION 30 ML CUP PO PRN (13:27)
[2023-05-22] MEDS ORDERED: LOPERAMIDE HCL 2 MG CAPSULE PO PRN (13:27)
[2023-05-22] MEDS ORDERED: IBUPROFEN 400 MG TABLET (FP) PO PRN (13:27)
[2023-05-22] MEDS ORDERED: DICYCLOMINE HCL 10 MG CAPSULE PO PRN (13:27)
[2023-05-22] MEDS ORDERED: MAG HYDROX/AL HYDROX/SIMETH 30 ML UNIT-DOSE CUP PO PRN (13:27)
[2023-05-22] MEDS ORDERED: ACETAMINOPHEN 325 MG TABLET (FP) PO PRN (13:27)
[2023-05-22] MEDS ORDERED: BENZOCAINE/MENTHOL (CHLORASEPTIC ) LOZENGE MM PRN (13:27)
[2023-05-22] MEDS ORDERED: ONDANSETRON *ODT* 4 MG TABLET SL PRN (13:27)
[2023-05-22] MEDS ORDERED: NALOXONE HCL 0.4 MG/ML VIAL IM PRN (13:27)
[2023-05-22] MEDS ORDERED: NALOXONE HCL (KLOXXADO) 8 MG SPRAY NS PRN (13:27)
[2023-05-22] MEDS ORDERED: guaiFENesin 600 MG TABLET.ER (FP) PO PRN (13:27)
[2023-05-22] MEDS ORDERED: AMMONIUM LACTATE 12% LOTION 225 GM BOTTLE TP PRN (13:27)
[2023-05-22] MEDS ORDERED: ASPIRIN 81 MG CHEWABLE TABLETS ONE (14:13)
[2023-05-22] MEDS ORDERED: LISINOPRIL 10 MG TABLET ONE (14:13)
[2023-05-22] MEDS: ASPIRIN COATED 81 MG TABLET.EC PO SCH (14:19)
[2023-05-22] MEDS: LISINOPRIL 10 MG TABLET PO SCH (14:19)
[2023-05-22 17:10] LABS: HEMATOCRIT 40.9 % (35.4-49); MCHC 34.2 g/dl (32.0-35.9); MEAN CELL VOLUME 99.6 fl (80-96); MEAN PLT VOLUME 9.5 fl (7.5-11.1); PLATELET COUNT 187 10^3/uL (134-434); RDW 14.6 % (11.9-15.9); WHITE BLOOD COUNT 5.1 K/mm3 (4.0-10.0)
[2023-05-22 17:17] LABS: CALCIUM 9.2 mg/dL (8.5-10.1)
[2023-05-22 17:18] LABS: ALBUMIN 3.3 g/dl (3.4-5.0); BLOOD UREA NITROGEN 20.4 mg/dL (7-18)
[2023-05-22 17:22] LABS: TOT PROT 6.4 g/dl (6.4-8.2)
[2023-05-22 17:23] LABS: BILIRUBIN,TOTAL 0.2 mg/dL (0.2-1)
[2023-05-22] MEDS: chlordiazePOXIDE HCL 25 MG CAPSULE PO SCH ×2 (17:49→22:15)
[2023-05-22] MEDS: metFORMIN HCL 500 MG TABLET (FP) PO SCH (17:49)
[2023-05-22] MEDS: COLLOIDAL OATMEAL 1 BAR EACH TP PRN (17:50)
[2023-05-22] MEDS: MELATONIN 5 MG TABLETS PO SCH (22:15)
[2023-05-22] MEDS: THIAMINE HCL 100 MG TABLET (FP) PO SCH (22:15)
[2023-05-22] MEDS: ATORVASTATIN CA 10 MG TABLET (FP) PO SCH (22:15)
[2023-05-23] MEDS: chlordiazePOXIDE HCL 25 MG CAPSULE PO SCH ×5 (05:57→22:54)
[2023-05-23] MEDS: metFORMIN HCL 500 MG TABLET (FP) PO SCH ×2 (06:01→18:06)
[2023-05-23] MEDS: TAMSULOSIN HCL 0.4 MG CAP PO SCH (08:29)
[2023-05-23] MEDS: PRENATAL VITAMINS W/ FOLIC ACID TABLET (FP) PO SCH (10:17)
[2023-05-23] MEDS: SERTRALINE HCL 50 MG TABLET (FP) PO SCH (10:17)
[2023-05-23] MEDS: LISINOPRIL 10 MG TABLET PO SCH (10:17)
[2023-05-23] MEDS: ASPIRIN COATED 81 MG TABLET.EC PO SCH (10:17)
[2023-05-23] MEDS: ARIPiprazole 10 MG TABLET PO SCH (10:17)
[2023-05-23] MEDS: amLODIPine BESYLATE 10 MG TABLET (FP) PO SCH (12:25)
[2023-05-23] MEDS: HYDROCHLOROTHIAZIDE 12.5 MG CAPSULE (FP) PO SCH (12:25)
[2023-05-23 12:54] LABS: HIV INTERPRETATION NEGATIVE (NEGATIVE)
[2023-05-23] MEDS: VITAMINS A AND D TOPICAL OINTMENT 60 GM TUBE TP SCH ×2 (12:56→18:08)
[2023-05-23] MEDS: LACTULOSE 20 GM/30 ML UDC (FOR ORAL USE ONLY) PO SCH ×2 (15:09→22:52)
[2023-05-23] MEDS: MELATONIN 5 MG TABLETS PO SCH (22:52)
[2023-05-23] MEDS: traZODone HCL 50 MG TABLET (FP) PO PRN (22:53)
[2023-05-23] MEDS: THIAMINE HCL 100 MG TABLET (FP) PO SCH (22:53)
[2023-05-23] MEDS: ATORVASTATIN CA 10 MG TABLET (FP) PO SCH (22:54)
[2023-05-24] MEDS: VITAMINS A AND D TOPICAL OINTMENT 60 GM TUBE TP SCH ×4 (01:08→17:48)
[2023-05-24] MEDS: chlordiazePOXIDE HCL 25 MG CAPSULE PO SCH ×4 (05:58→22:30)
[2023-05-24] MEDS: LACTULOSE 20 GM/30 ML UDC (FOR ORAL USE ONLY) PO SCH ×4 (06:04→22:29)
[2023-05-24] MEDS: metFORMIN HCL 500 MG TABLET (FP) PO SCH ×2 (06:05→17:32)
[2023-05-24] MEDS ORDERED: INSULIN SLIDING SCALE (NOVOLOG) 1 VIAL SQ ONE (06:26)
[2023-05-24] MEDS: PRENATAL VITAMINS W/ FOLIC ACID TABLET (FP) PO SCH (09:20)
[2023-05-24] MEDS: HYDROCHLOROTHIAZIDE 12.5 MG CAPSULE (FP) PO SCH (09:21)
[2023-05-24] MEDS: amLODIPine BESYLATE 10 MG TABLET (FP) PO SCH (09:21)
[2023-05-24] MEDS: ASPIRIN COATED 81 MG TABLET.EC PO SCH (09:21)
[2023-05-24] MEDS: ARIPiprazole 10 MG TABLET PO SCH (09:21)
[2023-05-24] MEDS: LISINOPRIL 10 MG TABLET PO SCH (09:21)
[2023-05-24] MEDS: TAMSULOSIN HCL 0.4 MG CAP PO SCH (09:21)
[2023-05-24] MEDS: SERTRALINE HCL 50 MG TABLET (FP) PO SCH (09:21)
[2023-05-24] MEDS: ATORVASTATIN CA 10 MG TABLET (FP) PO SCH (22:30)
[2023-05-24] MEDS: MELATONIN 5 MG TABLETS PO SCH (22:30)
[2023-05-24] MEDS: THIAMINE HCL 100 MG TABLET (FP) PO SCH (22:30)
[2023-05-24] MEDS: traZODone HCL 50 MG TABLET (FP) PO PRN (22:31)
[2023-05-25] MEDS ORDERED: chlordiazePOXIDE HCL 10 MG CAPSULE PO PRN
[2023-05-25] MEDS: METHOCARBAMOL 500 MG TABLET PO PRN (02:13)
[2023-05-25] MEDS: VITAMINS A AND D TOPICAL OINTMENT 60 GM TUBE TP SCH ×4 (04:56→18:01)
[2023-05-25] MEDS: LACTULOSE 20 GM/30 ML UDC (FOR ORAL USE ONLY) PO SCH ×3 (06:01→22:26)
[2023-05-25] MEDS: chlordiazePOXIDE HCL 10 MG CAPSULE PO SCH ×4 (06:02→22:23)
[2023-05-25] MEDS: metFORMIN HCL 500 MG TABLET (FP) PO SCH ×2 (07:59→17:25)
[2023-05-25] MEDS: TAMSULOSIN HCL 0.4 MG CAP PO SCH (08:25)
[2023-05-25] MEDS: HYDROCHLOROTHIAZIDE 12.5 MG CAPSULE (FP) PO SCH (10:53)
[2023-05-25] MEDS: amLODIPine BESYLATE 10 MG TABLET (FP) PO SCH (10:53)
[2023-05-25] MEDS: PRENATAL VITAMINS W/ FOLIC ACID TABLET (FP) PO SCH (10:53)
[2023-05-25] MEDS: LISINOPRIL 10 MG TABLET PO SCH (10:53)
[2023-05-25] MEDS: ASPIRIN COATED 81 MG TABLET.EC PO SCH (10:53)
[2023-05-25] MEDS: SERTRALINE HCL 50 MG TABLET (FP) PO SCH (10:53)
[2023-05-25] MEDS: ARIPiprazole 10 MG TABLET PO SCH (10:53)
[2023-05-25] MEDS: THIAMINE HCL 100 MG TABLET (FP) PO SCH (22:23)
[2023-05-25] MEDS: MELATONIN 5 MG TABLETS PO SCH (22:23)
[2023-05-25] MEDS: ATORVASTATIN CA 10 MG TABLET (FP) PO SCH (22:26)
[2023-05-25] MEDS: traZODone HCL 50 MG TABLET (FP) PO PRN (22:29)
[2023-05-26] MEDS: VITAMINS A AND D TOPICAL OINTMENT 60 GM TUBE TP SCH ×4 (03:05→18:09)
[2023-05-26] MEDS: chlordiazePOXIDE HCL 10 MG CAPSULE PO SCH ×2 (05:24→17:56)
[2023-05-26] MEDS: LACTULOSE 20 GM/30 ML UDC (FOR ORAL USE ONLY) PO SCH ×3 (05:25→22:14)
[2023-05-26] MEDS: metFORMIN HCL 500 MG TABLET (FP) PO SCH ×2 (06:20→17:57)
[2023-05-26] MEDS: SERTRALINE HCL 50 MG TABLET (FP) PO SCH (09:25)
[2023-05-26] MEDS: ARIPiprazole 10 MG TABLET PO SCH (09:25)
[2023-05-26] MEDS: ASPIRIN COATED 81 MG TABLET.EC PO SCH (09:25)
[2023-05-26] MEDS: LISINOPRIL 10 MG TABLET PO SCH (09:25)
[2023-05-26] MEDS: amLODIPine BESYLATE 10 MG TABLET (FP) PO SCH (09:25)
[2023-05-26] MEDS: HYDROCHLOROTHIAZIDE 12.5 MG CAPSULE (FP) PO SCH (09:25)
[2023-05-26] MEDS: TAMSULOSIN HCL 0.4 MG CAP PO SCH (09:26)
[2023-05-26] MEDS: PRENATAL VITAMINS W/ FOLIC ACID TABLET (FP) PO SCH (09:26)
[2023-05-26] MEDS: THIAMINE HCL 100 MG TABLET (FP) PO SCH (22:13)
[2023-05-26] MEDS: ATORVASTATIN CA 10 MG TABLET (FP) PO SCH (22:13)
[2023-05-26] MEDS: MELATONIN 5 MG TABLETS PO SCH (23:23)
[2023-05-27] MEDS: VITAMINS A AND D TOPICAL OINTMENT 60 GM TUBE TP SCH ×2 (00:31→05:57)
[2023-05-27] MEDS: METHOCARBAMOL 500 MG TABLET PO PRN (01:06)
[2023-05-27] MEDS ORDERED: chlordiazePOXIDE HCL 10 MG CAPSULE PO ONE (05:00)
[2023-05-27] MEDS: LACTULOSE 20 GM/30 ML UDC (FOR ORAL USE ONLY) PO SCH (05:57)
[2023-05-27] MEDS: metFORMIN HCL 500 MG TABLET (FP) PO SCH (06:09)
[2023-05-27] MEDS: COLLOIDAL OATMEAL 1 BAR EACH TP PRN (06:25)
[2023-05-27] MEDS: TAMSULOSIN HCL 0.4 MG CAP PO SCH (08:45)
[2023-05-27 08:54] VITALS: BP 142/76; PULSE 78; RESP 18; TEMP 98.2
[2023-05-27] MEDS: HYDROCHLOROTHIAZIDE 12.5 MG CAPSULE (FP) PO SCH (09:01)
[2023-05-27] MEDS: ARIPiprazole 10 MG TABLET PO SCH (09:01)
[2023-05-27] MEDS: ASPIRIN COATED 81 MG TABLET.EC PO SCH (09:01)
[2023-05-27] MEDS: SERTRALINE HCL 50 MG TABLET (FP) PO SCH (09:01)
[2023-05-27] MEDS: LISINOPRIL 10 MG TABLET PO SCH (09:01)
[2023-05-27] MEDS: amLODIPine BESYLATE 10 MG TABLET (FP) PO SCH (09:01)
[2023-05-27] MEDS: PRENATAL VITAMINS W/ FOLIC ACID TABLET (FP) PO SCH (09:01)
== END 2023-05-27 08:53 | disposition home or self-care (01) | DRG 774 ==
LOC: YASAS 11:55 → Y3N 13:45
PROVIDERS: ADMIT Allergy & Immunology; ATTEND Surgery
PROC: HZ2ZZZZ Detoxification Services for Substance Abuse Treatment (ICD-10-PCS; principal; 2023-05-22)
DX: F10.230 Alcohol dependence with withdrawal, uncomplicated (principal); F14.20 Cocaine dependence, uncomplicated; F12.20 Cannabis dependence, uncomplicated; F17.210 Nicotine dependence, cigarettes, uncomplicated; F19.24 Other psychoactive substance dependence with psychoactive substance-induced mood disorder; F43.10 Post-traumatic stress disorder, unspecified; E72.20 Disorder of urea cycle metabolism, unspecified; E78.5 Hyperlipidemia, unspecified; G47.39 Other sleep apnea; I10 Essential (primary) hypertension; J44.9 Chronic obstructive pulmonary disease, unspecified; E11.9 Type 2 diabetes mellitus without complications; Z79.84 Long term (current) use of oral hypoglycemic drugs; N40.0 Benign prostatic hyperplasia without lower urinary tract symptoms; Z86.19 Personal history of other infectious and parasitic diseases
CPT/HCPCS: 36415; 80053; 82140; 82962; 85027; 86593; 86780; 87389; 87635; 87811

== ENCOUNTER 2024-10-14 20:10 | Inpatient (IN) | payer OTHER ==
[2024-10-14 21:05] VITALS: BMI 27.4
[2024-10-14] MEDS ORDERED: POLYETHYLENE GLYCOL (HEALTHYLAX) 3350 17 GM PACKET PO PRN (22:48)
[2024-10-14] MEDS ORDERED: hydrOXYzine PAMOATE 25 MG CAPSULE (FP) PO PRN (22:48)
[2024-10-14] MEDS ORDERED: DICYCLOMINE HCL 10 MG CAPSULE PO PRN (22:48)
[2024-10-14] MEDS ORDERED: guaiFENesin 600 MG TABLET.ER (FP) PO PRN (22:48)
[2024-10-14] MEDS ORDERED: NICOTINE POLACRILEX 2 MG LOZENGE BC PRN (22:48)
[2024-10-14] MEDS ORDERED: MAG HYDROX/AL HYDROX/SIMETH 30 ML UNIT-DOSE CUP PO PRN (22:48)
[2024-10-14] MEDS ORDERED: IBUPROFEN 600 MG TABLET (FP) PO PRN (22:48)
[2024-10-14] MEDS ORDERED: ACETAMINOPHEN 325 MG TABLET (FP) PO PRN (22:48)
[2024-10-14] MEDS ORDERED: NALOXONE (NARCAN) HCL 4 MG/0.1 ML SPRAY NS PRN (22:48)
[2024-10-14] MEDS ORDERED: ONDANSETRON *ODT* 4 MG TABLET SL PRN (22:48)
[2024-10-14] MEDS ORDERED: MAGNESIUM HYDROX 2400MG/30ML ORAL SUSPENSION 30 ML CUP PO PRN (22:48)
[2024-10-14] MEDS ORDERED: BISMUTH SUBSALICYLATE 524 MG/30 ML PO PRN (22:48)
[2024-10-14] MEDS ORDERED: IBUPROFEN 400 MG TABLET (FP) PO PRN (22:48)
[2024-10-14] MEDS ORDERED: BENZOCAINE/MENTHOL (CHLORASEPTIC ) LOZENGE MM PRN (22:48)
[2024-10-14] MEDS ORDERED: BENZONATATE 200 MG CAPSULE PO PRN (22:48)
[2024-10-14] MEDS ORDERED: LOPERAMIDE HCL 2 MG CAPSULE PO PRN (22:48)
[2024-10-15] MEDS ORDERED: LORazepam 1 MG TABLET PO PRN (09:51)
[2024-10-15] MEDS: LORazepam 2 MG TABLET PO SCH (10:33)
[2024-10-15] MEDS: ASPIRIN COATED 81 MG TABLET.EC PO SCH (10:34)
[2024-10-15] MEDS: LISINOPRIL 10 MG TABLET PO SCH (10:34)
[2024-10-15] MEDS: amLODIPine BESYLATE 10 MG TABLET (FP) PO SCH (10:34)
[2024-10-15] MEDS: HYDROCHLOROTHIAZIDE 12.5 MG CAPSULE (FP) PO SCH (10:34)
[2024-10-15] MEDS: NICOTINE 14 MG/24 HOURS TOPICAL PATCH TD SCH (10:35)
[2024-10-15] MEDS: PRENATAL VITAMINS W/ FOLIC ACID TABLET (FP) PO SCH (10:35)
[2024-10-15] MEDS: NALTREXONE HCL 50 MG TABLET PO SCH (11:05)
[2024-10-15 12:53] LABS: HEMATOCRIT 42.6 % (35.4-49); HEMOGLOBIN 14.5 GM/dL (11.7-16.9); MCH 34.2 pg (25.7-33.7); MCHC 34.1 g/dl (32.0-35.9); MEAN CELL VOLUME 100.6 fl (80-96); MEAN PLT VOLUME 8.9 fl (7.5-11.1); PLATELET COUNT 216 10^3/uL (134-434); RBC 4.24 M/mm3 (4.00-5.60); WHITE BLOOD COUNT 3.8 K/mm3 (4.0-10.0)
[2024-10-15 13:02] LABS: CHLORIDE 110 mmol/L (98-107); POTASSIUM 4.2 mmol/L (3.5-5.1); SODIUM 140 mmol/L (136-145)
[2024-10-15 13:40] LABS: SGOT/AST 16 U/L (15-37); SGPT/ALT 17 U/L (13-61)
[2024-10-15 13:41] LABS: ALBUMIN 3.3 g/dl (3.4-5.0); BILIRUBIN,TOTAL 0.4 mg/dL (0.2-1); BLOOD UREA NITROGEN 16.4 mg/dL (7-18); TOT PROT 6.1 g/dl (6.4-8.2)
[2024-10-15 13:43] LABS: ALK PHOS 68 U/L (45-117); GLUCOSE,RANDOM 80 mg/dL (74-106)
[2024-10-15 13:44] LABS: CREATININE 0.9 mg/dL (0.55-1.3)
[2024-10-15 13:50] LABS: ANION GAP 6 mmol/L (4-13); CALCIUM 9.3 mg/dL (8.5-10.1); CO2 24 mmol/L (21-32)
[2024-10-15] MEDS: metFORMIN HCL 500 MG TABLET (FP) PO SCH (18:17)
[2024-10-15] MEDS: METHOCARBAMOL 500 MG TABLET PO PRN (22:45)
[2024-10-15] MEDS: MELATONIN 5 MG TABLETS PO SCH (22:45)
[2024-10-15] MEDS: ATORVASTATIN CA 10 MG TABLET (FP) PO SCH (22:45)
[2024-10-15] MEDS: THIAMINE 100 MG TABLET PO SCH (22:45)
[2024-10-16] MEDS: TAMSULOSIN HCL 0.4 MG CAP PO SCH (07:43)
[2024-10-17] MEDS: LORazepam 1 MG TABLET PO SCH (05:09)
[2024-10-17] MEDS: ARIPiprazole 10 MG TABLET PO SCH (14:52)
[2024-10-17] MEDS: SERTRALINE HCL 50 MG TABLET (FP) PO SCH (14:52)
[2024-10-18] MEDS ORDERED: LORazepam 0.5 MG TABLET PO PRN
[2024-10-18] MEDS: LORazepam 0.5 MG TABLET PO SCH (06:00)
[2024-10-18] MEDS: NALOXONE (NYS OPIOID OVERDOSE PROGRAM) 4 MG/0.1 ML SPRAY NS SCH (12:44)
[2024-10-18] MEDS: traZODone HCL 50 MG TABLET (FP) PO PRN (22:37)
[2024-10-19] MEDS: LORazepam 0.5 MG TABLET PO ONE (05:51)
[2024-10-20 05:55] VITALS: RESP 18
[2024-10-20 10:34] VITALS: BP 128/90; PULSE 79; TEMP 96.8
== END 2024-10-20 11:22 | disposition home or self-care (01) | DRG 774 ==
LOC: YASAS 20:10 → Y6N 22:50
PROVIDERS: ADMIT Surgery; ATTEND Allergy & Immunology
PROC: HZ2ZZZZ Detoxification Services for Substance Abuse Treatment (ICD-10-PCS; principal; 2024-10-14)
DX: F10.230 Alcohol dependence with withdrawal, uncomplicated (principal); F14.20 Cocaine dependence, uncomplicated; F12.20 Cannabis dependence, uncomplicated; F17.210 Nicotine dependence, cigarettes, uncomplicated; F25.1 Schizoaffective disorder, depressive type; F19.280 Other psychoactive substance dependence with psychoactive substance-induced anxiety disorder; F19.24 Other psychoactive substance dependence with psychoactive substance-induced mood disorder; F33.1 Major depressive disorder, recurrent, moderate; F43.10 Post-traumatic stress disorder, unspecified; G47.30 Sleep apnea, unspecified; I10 Essential (primary) hypertension; J44.9 Chronic obstructive pulmonary disease, unspecified; E78.5 Hyperlipidemia, unspecified; E11.9 Type 2 diabetes mellitus without complications; Z79.84 Long term (current) use of oral hypoglycemic drugs; N40.0 Benign prostatic hyperplasia without lower urinary tract symptoms; Z86.19 Personal history of other infectious and parasitic diseases
CPT/HCPCS: 36415; 80053; 80305; 80307; 82962; 85027; 86593; 86780; 93005; 93010

== ENCOUNTER 2025-05-11 11:57 | Inpatient (IN) | payer OTHER ==
[2025-05-11] MEDS ORDERED: LOPERAMIDE HCL 2 MG CAPSULE PO PRN (14:27)
[2025-05-11] MEDS ORDERED: hydrOXYzine PAMOATE 25 MG CAPSULE (FP) PO PRN (14:27)
[2025-05-11] MEDS ORDERED: NICOTINE POLACRILEX 4 MG LOZENGE BC PRN (14:27)
[2025-05-11] MEDS ORDERED: NALOXONE HCL 0.4 MG/ML VIAL IVPUSH PRN (14:27)
[2025-05-11] MEDS ORDERED: IBUPROFEN 400 MG TABLET (FP) PO PRN (14:27)
[2025-05-11] MEDS ORDERED: ACETAMINOPHEN 325 MG TABLET (FP) PO PRN (14:27)
[2025-05-11] MEDS ORDERED: NICOTINE 14 MG/24 HOURS TOPICAL PATCH TD PRN (14:27)
[2025-05-11] MEDS ORDERED: MAGNESIUM HYDROX 2400MG/30ML ORAL SUSPENSION 30 ML CUP PO PRN (14:27)
[2025-05-11] MEDS ORDERED: METHOCARBAMOL 500 MG TABLET PO PRN (14:27)
[2025-05-11] MEDS ORDERED: BENZONATATE 200 MG CAPSULE PO PRN (14:27)
[2025-05-11] MEDS ORDERED: guaiFENesin 600 MG TABLET.ER (FP) PO PRN (14:27)
[2025-05-11] MEDS ORDERED: POLYETHYLENE GLYCOL (HEALTHYLAX) 3350 17 GM PACKET PO PRN (14:27)
[2025-05-11] MEDS ORDERED: NALOXONE (NARCAN) HCL 4 MG/0.1 ML SPRAY NS PRN (14:27)
[2025-05-11] MEDS ORDERED: BENZOCAINE/MENTHOL (CHLORASEPTIC ) LOZENGE MM PRN (14:27)
[2025-05-11] MEDS ORDERED: NICOTINE POLACRILEX 4 MG GUM BUC PRN (14:27)
[2025-05-11] MEDS: metFORMIN HCL 500 MG TABLET (FP) PO SCH (17:03)
[2025-05-11] MEDS: AMOX TR/POT CLAV 875MG/125MG TABLETS (FP) PO SCH (17:14)
[2025-05-11] MEDS: ATORVASTATIN CA 10 MG TABLET (FP) PO SCH (21:19)
[2025-05-11] MEDS: traZODone HCL 50 MG TABLET (FP) PO SCH (21:19)
[2025-05-11] MEDS: THIAMINE 100 MG TABLET PO SCH (21:19)
[2025-05-11] MEDS: MELATONIN 5 MG TABLETS PO SCH (21:20)
[2025-05-12] MEDS: TAMSULOSIN HCL 0.4 MG CAP PO SCH (07:36)
[2025-05-12] MEDS: ASPIRIN 81 MG CHEWABLE TABLETS PO SCH (09:46)
[2025-05-12] MEDS: ARIPiprazole 10 MG TABLET PO SCH (09:46)
[2025-05-12] MEDS: LISINOPRIL 10 MG TABLET PO SCH (09:46)
[2025-05-12] MEDS: HYDROCHLOROTHIAZIDE 12.5 MG CAPSULE (FP) PO SCH (09:47)
[2025-05-12] MEDS: PRENATAL VITAMINS W/ FOLIC ACID TABLET (FP) PO SCH (09:47)
[2025-05-12] MEDS: SERTRALINE HCL 50 MG TABLET (FP) PO SCH (09:47)
[2025-05-14] MEDS: IBUPROFEN 600 MG TABLET (FP) PO PRN (09:05)
[2025-05-14] MEDS ORDERED: BISMUTH SUBSALICYLATE 262 MG/15 ML BTL PO PRN (12:03)
[2025-05-14] MEDS ORDERED: guaiFENesin 600 MG TABLET.ER (FP) PO PRN (12:03)
[2025-05-14] MEDS ORDERED: ONDANSETRON *ODT* 4 MG TABLET SL PRN (12:03)
[2025-05-14] MEDS ORDERED: DICYCLOMINE HCL 10 MG CAPSULE PO PRN (12:03)
[2025-05-14] MEDS ORDERED: BENZONATATE 200 MG CAPSULE PO PRN (12:03)
[2025-05-14] MEDS ORDERED: chlordiazePOXIDE HCL 10 MG CAPSULE PO PRN (12:10)
[2025-05-14] MEDS ORDERED: INSULIN (NOVOLOG) ASPART 100 UNITS/ML 10ML VIAL ONE (21:34)
[2025-05-15] MEDS: MAG HYDROX/AL HYDROX/SIMETH 30 ML UNIT-DOSE CUP PO PRN (11:07)
[2025-05-17] MEDS: NALTREXONE HCL 50 MG TABLET PO ONE (10:08)
[2025-05-17 22:03] LABS: EPI CELLS 32 /uL (0-25.1); HYALINE CASTS 60 /uL (0-3.1); PH,URINE 5.5 (5.0-8.0); URINE APPEARANCE TURBID; URINE BACTERIA 5 /uL (0-1359); URINE BILIRUBIN NEGATIVE (NEGATIVE); URINE COLOR YELLOW; URINE GLUCOSE (UA) NEGATIVE (NEGATIVE); URINE KETONE TRACE (NEGATIVE); URINE LEUK ESTERASE NEGATIVE (NEGATIVE); URINE NITRITE NEGATIVE (NEGATIVE); URINE PROTEIN 3+ (NEGATIVE)
[2025-05-17 22:07] LABS: URINE WBC 89.1 /uL (0-25.8)
[2025-05-18] MEDS: NALTREXONE HCL 50 MG TABLET PO SCH (10:19)
[2025-05-21 06:30] VITALS: TEMP 97.7
[2025-05-21 08:35] VITALS: BP 121/72; PULSE 80; RESP 15
== END 2025-05-21 12:15 | disposition home or self-care (01) | DRG 772 ==
LOC: YASAS 11:57 → Y3E 11:59
PROVIDERS: ADMIT Psychiatry & Neurology Pain Medicine; ATTEND Psychiatry & Neurology Pain Medicine
PROC: HZ42ZZZ Group Counseling for Substance Abuse Treatment, Cognitive-Behavioral (ICD-10-PCS; principal; 2025-05-11)
DX: F10.20 Alcohol dependence, uncomplicated (principal); F14.20 Cocaine dependence, uncomplicated; F12.20 Cannabis dependence, uncomplicated; F17.210 Nicotine dependence, cigarettes, uncomplicated; F19.282 Other psychoactive substance dependence with psychoactive substance-induced sleep disorder; F19.24 Other psychoactive substance dependence with psychoactive substance-induced mood disorder; F25.1 Schizoaffective disorder, depressive type; F31.9 Bipolar disorder, unspecified; F43.10 Post-traumatic stress disorder, unspecified; F41.9 Anxiety disorder, unspecified; I10 Essential (primary) hypertension; E78.5 Hyperlipidemia, unspecified; E11.9 Type 2 diabetes mellitus without complications; Z79.84 Long term (current) use of oral hypoglycemic drugs; K04.7 Periapical abscess without sinus; N40.0 Benign prostatic hyperplasia without lower urinary tract symptoms
CPT/HCPCS: 80305; 81003; 82962

== ENCOUNTER 2025-08-14 10:43 | Inpatient (IN) | payer OTHER ==
[2025-08-14 10:59] VITALS: BMI 27.1
[2025-08-14] MEDS ORDERED: hydrOXYzine PAMOATE 25 MG CAPSULE (FP) PO PRN (12:33)
[2025-08-14] MEDS ORDERED: BENZOCAINE/MENTHOL (CHLORASEPTIC ) LOZENGE MM PRN (12:33)
[2025-08-14] MEDS ORDERED: ACETAMINOPHEN 325 MG TABLET (FP) PO PRN (12:33)
[2025-08-14] MEDS ORDERED: NICOTINE POLACRILEX 2 MG GUM BUC PRN (12:33)
[2025-08-14] MEDS ORDERED: MAGNESIUM HYDROX 2400MG/30ML ORAL SUSPENSION 30 ML CUP PO PRN (12:33)
[2025-08-14] MEDS ORDERED: POLYETHYLENE GLYCOL (HEALTHYLAX) 3350 17 GM PACKET PO PRN (12:33)
[2025-08-14] MEDS ORDERED: guaiFENesin 600 MG TABLET.ER (FP) PO PRN (12:33)
[2025-08-14] MEDS ORDERED: NICOTINE POLACRILEX 2 MG LOZENGE BC PRN (12:33)
[2025-08-14] MEDS ORDERED: IBUPROFEN 400 MG TABLET (FP) PO PRN (12:33)
[2025-08-14] MEDS ORDERED: BENZONATATE 200 MG CAPSULE PO PRN (12:33)
[2025-08-14] MEDS ORDERED: NALOXONE (NARCAN) HCL 4 MG/0.1 ML SPRAY NS PRN (12:33)
[2025-08-14] MEDS ORDERED: METOPROLOL TARTRATE 25 MG TABLET (FP) ONE (12:51)
[2025-08-14] MEDS: METOPROLOL TARTRATE 25 MG TABLET (FP) PO ONE (13:10)
[2025-08-14] MEDS ORDERED: VITAMINS A AND D TOPICAL OINTMENT TP PRN (14:36)
[2025-08-14] MEDS: ASPIRIN 81 MG CHEWABLE TABLETS PO SCH (14:42)
[2025-08-14] MEDS: metFORMIN HCL 500 MG TABLET (FP) PO SCH (17:25)
[2025-08-14 19:23] LABS: EPI CELLS 5 /uL (0-25.1); HYALINE CASTS 1 /uL (0-3.1); URINE APPEARANCE CLEAR; URINE BACTERIA 18 /uL (0-1359); URINE BILIRUBIN NEGATIVE (NEGATIVE); URINE COLOR YELLOW; URINE GLUCOSE (UA) NEGATIVE (NEGATIVE); URINE KETONE NEGATIVE (NEGATIVE); URINE LEUK ESTERASE NEGATIVE (NEGATIVE); URINE NITRITE NEGATIVE (NEGATIVE); URINE PROTEIN 1+ (NEGATIVE); URINE UROBILINOGEN 1.0 mg/dL (0.2-1.0); URINE WBC 11 /uL (0-25.8)
[2025-08-14] MEDS: BACITRACIN 0.9 GM PACKET TP SCH (21:49)
[2025-08-14] MEDS: traZODone HCL 50 MG TABLET (FP) PO SCH (21:49)
[2025-08-14] MEDS: MELATONIN 5 MG TABLETS PO SCH (21:49)
[2025-08-14] MEDS: THIAMINE 100 MG TABLET PO SCH (21:50)
[2025-08-14] MEDS: ATORVASTATIN CA 10 MG TABLET (FP) PO SCH (21:50)
[2025-08-15] MEDS: TAMSULOSIN HCL 0.4 MG CAP PO SCH (07:32)
[2025-08-15] MEDS: SERTRALINE HCL 50 MG TABLET (FP) PO SCH (10:04)
[2025-08-15] MEDS: PRENATAL VITAMINS W/ FOLIC ACID TABLET (FP) PO SCH (10:04)
[2025-08-15] MEDS: HYDROCHLOROTHIAZIDE 12.5 MG CAPSULE (FP) PO SCH (10:05)
[2025-08-15] MEDS: LISINOPRIL 10 MG TABLET PO SCH (10:05)
[2025-08-15 11:04] LABS: MCHC 33.0 g/dl (32.3-36.5); MEAN CELL VOLUME 100.0 fl (79.0-92.2); MEAN PLT VOLUME 12.5 fl (9.4-12.4); RDW 13.7 % (12.2-16.1)
[2025-08-15 11:09] LABS: GLUCOSE,RANDOM 90 mg/dL (74-106)
[2025-08-15 11:10] LABS: TOT PROT 5.9 g/dl (6.4-8.2)
[2025-08-15 11:11] LABS: CO2 23 mmol/L (21-32)
[2025-08-15 11:15] LABS: CREATININE 0.88 mg/dL (0.55-1.3); SGOT/AST 22 U/L (5-34); SGPT/ALT 10 U/L (0-55)
[2025-08-15 11:24] LABS: ALK PHOS 73 U/L (40-150)
[2025-08-15 11:34] LABS: SYPHILIS W/ RPR CONF REACTIVE (NONREACTIVE)
[2025-08-15 14:55] LABS: RPR REFLEX REACTIVE 1:1 (NONREACTIVE)
[2025-08-16] MEDS: CALCIUM CARBONATE 650 MG TABLET PO SCH (11:14)
[2025-08-16] MEDS: IBUPROFEN 600 MG TABLET (FP) PO PRN (11:16)
[2025-08-17] MEDS: TAMSULOSIN HCL 0.4 MG CAP PO SCH (06:51)
[2025-08-18 07:09] VITALS: RESP 18
[2025-08-18] MEDS: LOPERAMIDE HCL 2 MG CAPSULE PO PRN (07:35)
[2025-08-19 09:50] VITALS: BP 134/78; PULSE 99; TEMP 97.6
[2025-08-19] MEDS: MAG HYDROX/AL HYDROX/SIMETH 30 ML UNIT-DOSE CUP PO PRN (10:24)
== END 2025-08-19 12:45 | disposition left against medical advice (07) | DRG 770 ==
LOC: YASAS 10:43 → Y3NR 13:05 → Y5N 20:38
PROVIDERS: ADMIT Neuromusculoskeletal Medicine & OMM; ATTEND Psychiatry & Neurology Pain Medicine
PROC: HZ42ZZZ Group Counseling for Substance Abuse Treatment, Cognitive-Behavioral (ICD-10-PCS; principal; 2025-08-14)
DX: F10.20 Alcohol dependence, uncomplicated (principal); F14.10 Cocaine abuse, uncomplicated; F12.10 Cannabis abuse, uncomplicated; F17.210 Nicotine dependence, cigarettes, uncomplicated; F31.9 Bipolar disorder, unspecified; F19.282 Other psychoactive substance dependence with psychoactive substance-induced sleep disorder; F19.280 Other psychoactive substance dependence with psychoactive substance-induced anxiety disorder; F19.24 Other psychoactive substance dependence with psychoactive substance-induced mood disorder; F25.1 Schizoaffective disorder, depressive type; I10 Essential (primary) hypertension; E83.51 Hypocalcemia; E78.5 Hyperlipidemia, unspecified; E11.9 Type 2 diabetes mellitus without complications; Z79.84 Long term (current) use of oral hypoglycemic drugs; N40.0 Benign prostatic hyperplasia without lower urinary tract symptoms
CPT/HCPCS: 36415; 80053; 80305; 80307; 81003; 82652; 82962; 83735; 85027; 86593; 86780; 87811